=== PATIENT | female | born 1940 | race Caucasian/White ===

== ENCOUNTER 2016-05-13 11:45 | Inpatient (IN) | payer OTHER, MEDICARE ==
[~2016-05-13] VITALS: Ht 152.4 cm; Wt 86.2 kg
[~2016-05-13 11:45] MED LIST: ASPIRIN EC81 M1 PO; ATORVASTATIN CA40 MG PO; CLOPIDOGREL75 MG PO; ESCITALOPRAM10 MG PO; LEVOCETIRIZINE D5 MG PO; LEVOTHROID SOD0.1 MG PO; METOPROLOL SUCC50 M1 PO; MOMETASONE0.05 MG/Ac NASB; OMEPRAZOLE D/R20 MG PO; SINGULAIR10 MG PO; SYMBICORT 160/41 PUF INH; ZETIA10 MG PO
--- NOTE | 2016-05-13 12:07 | NUR ---
PT BIBA FROM HOME. PT STATES SHE SLID OFF THE COUCH LAST NIGHT AND WAS UNABLE TO GET BACK UP. PT STATES SHE SPENT THE NIGHT ON THE FLOOR UNTIL HER NEIGHBOR CHECKED ON HER TODAY. PT ARRIVES TO ED, A&O X 3, INCONTINENT OF STOOL AND URINE. GAYATRI CARE PROVIDED. PT HAS SKIN TEARS TO BILATERAL ELBOWS AND REDNESS TO B/L KNEES. PT DENIES LOC AND STATES THAT SHE TAKES PLAVIX FOR CARDIAC STENTS. PT STATES +DIZZY
[2016-05-13 12:37] LABS: ABSOLUTE BASOPHIL COUNT 0 /CUMM (0.0-0.2); ABSOLUTE EOSINOPHIL COUNT 0 /CUMM (0.0-0.7); ABSOLUTE GRANULOCYTE CT 13.6 /CUMM (1.4-6.5); ABSOLUTE LYMPH COUNT 0.9 /CUMM (1.2-3.4); ABSOLUTE MONOCYTE COUNT 0.8 /CUMM (0.10-0.60); BASOPHIL % 0.2 % (0.0-2.0); EOSINOPHIL % 0.1 % (0-5); HEMATOCRIT 44.8 % (37-47); MEAN CORPUSCULAR HGB 30.4 PG (27.0-31.0); MEAN CORPUSCULAR HGB CONC 33.8 G/DL (33.0-37.0); MEAN CORPUSCULAR VOLUME 89.9 FL (81.0-99.0); MEAN PLATELET VOLUME 8.4 FL (7.4-10.4); PLATELET COUNT 197 /CUMM (130-400); RBC DISTRIBUTION WIDTH 14.2 % (11.5-14.5); RED BLOOD CELL CT 4.98 /CUMM (4.20-5.40); WHITE BLOOD CELL COUNT 15.4 /CUMM (4.8-10.8)
[2016-05-13 12:42] LABS: PT 13.2 SEC (9.4-12.5)
[2016-05-13] MEDS ORDERED: BREO ELLIPTA 21 EACH (12:44)
[2016-05-13 13:00] LABS: GRANULOCYTE % 88.1 % (42.2-75.2)
--- NOTE | 2016-05-13 13:16 | ED MVC/FALL/TRAUMA COMPLAINT ---
History of Present Illness General Chief Complaint: Fall Stated Complaint: BIBA FALL, GEN WEAKNESS Source: patient, family, old records Exam Limitations: no limitations Vital Signs & Intake/Output Vital Signs & Intake/Output Vital Signs Date Time Temp Pulse Resp B/P Pulse O2 O2 Flow FiO2 Ox Delivery Rate 05/13 1542 98.5 78 81 125/59 98 Room Air 05/13 1203 97.9 74 20 142/65 96 Room Air Allergies Coded Allergies: NO KNOWN ALLERGIES (03/19/11) Reconcile Medications Aspirin (Ecotrin*) 81 MG TABLET.DR 1 TAB PO DAILY HEART HEALTH (Reported) Budesonide/Formoterol Fumara (Symbicort 160-4.5 Mcg Inhaler) 160 MCG/4.5 MCG PUF 2 PUF INH BID ASTHMA (Reported) CLOPIDOGREL BISULFATE (Clopidogrel) 75 MG TAB 1 TAB PO DAILY BLOOD THINNER ( Reported) Ergocalciferol (Vitamin D2) (Vitamin D2) 50,000 UNIT CAPSULE 1 CAP PO QW vitamin D deficiency Escitalopram Oxalate 10 MG TAB 1 TAB PO DAILY MENTAL HEALTH (Reported) Ezetimibe (Zetia) 10 MG TAB 1 TAB PO DAILY CHOLESTEROL (Reported) LEVOCETIRIZINE DIHYDROCHLORIDE (Levocetirizine Dihydrochloride) 5 MG TAB 1 TAB PO QPM ASTHMA (Reported) Levothyroxine Sodium (Levothroid Sodium) 0.1 MG TAB 1 TAB PO DAILY THYROID ( Reported) Metoprolol Succinate (Metoprolol Succinate XL) [address] 1 TAB PO DAILY HEART (Reported) Mometasone Furoate (Nasonex) 0.05 MG/Actuation SPR 2 SPRAY NASB DAILY NASAL CONGESTION (Reported) Montelukast Sodium (Singulair) 10 MG TAB 1 TAB PO QPM ASTHMA (Reported) Omeprazole 20 MG CAPSULE.DR 1 CAP PO DAILY GERD (Reported) Prednisone 20 MG TABLET 1 TAB PO DAILY asthma Triage Note: PT BIBA FROM HOME. PT STATES SHE SLID OFF THE COUCH LAST NIGHT AND WAS UNABLE TO GET BACK UP. PT STATES SHE SPENT THE NIGHT ON THE FLOOR UNTIL HER NEIGHBOR CHECKED ON HER TODAY. PT ARRIVES TO ED, A&O X 3, INCONTINENT OF STOOL AND URINE. GAYATRI CARE PROVIDED. PT HAS SKIN TEARS TO BILATERAL ELBOWS AND REDNESS TO B/L KNEES. PT DENIES LOC AND STATES THAT SHE TAKES PLAVIX FOR CARDIAC STENTS. Triage Nurses Notes Reviewed? yes HPI: Patient presents for evaluation of injury sustained status post fall off the couch yesterday. Patient states that she had taken a nap, had awoken and attempted to get up off the couch. She then fell onto the floor and was unable to arise due to pain and weakness. She has a known history of chronic back pain and chronic knee pains but apparently lay on the floor until this morning. She denies head trauma or loss of consciousness. According to the patient's daughter she wasn't feeling well Tuesday and Tuesday with a headache sore throat cough and vomiting. The symptoms appear to have resolved. Currently the pt has back and bilateral knee painsThe patient's pain is characterized as mild in intensity and worse with movement and palpation. It is described as a sharp and achy pain that is constant and improves with rest and holding still. Apparently she has been falling fairly frequently over the past 5 or so weeks. Past History Travel History Traveled to [place] past 21 day No Medical History Any Pertinent Medical History? 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 Left arthroscopic rotator cuff repair, Left knee arthroscopic repair Psychosocial History Who do you live with Family Services at Home None What is your primary language Maori Tobacco Use: Quit >30 days ago ETOH Use: denies use Illicit Drug Use: denies illicit drug use Family History Family History, If Any: MOTHER FH: diabetes mellitus FH: esophageal cancer FH: heart attack, Onset: 60+. FATHER FH: prostate cancer Hx Contributory? No Review of Systems Review of Systems Constitutional: Reports: no symptoms. Eyes: Reports: no symptoms. Ears, Nose, Throat, Mouth: Reports: no symptoms. Respiratory: Reports: no symptoms. Cardiovascular: Reports: no symptoms. Gastrointestinal/Abdominal: Reports: no symptoms. Genitourinary: Reports: no symptoms. Musculoskeletal: Reports: see HPI. Skin: Reports: no symptoms. Neurological/Psychological: Reports: no symptoms. All Other Systems: Reviewed and Negative Physical Exam Physical Exam General Appearance: SEE BELOW Comments: Gen.: Well-nourished, well-developed, no acute respiratory distress. Head: Normocephalic, atraumatic, nontender. Eyes: Normal inspection bilaterally, bryan, EOMI Ears: Normal inspection bilaterally Nose: Normal inspection Throat/mouth : Moist mucosa Neck: Supple, full range of motion, no goiter, nontender Heart: Regular rate and rhythm, no murmurs rubs or gallops Lungs: Clear to auscultation bilaterally with normal air entry Chest: Nontender Back: Normal range of motion, nontender Abdomen: Soft, nontender, nondistended, normal bowel sounds Pelvis: Stable, bilateral tenderness to palpation. Extremities: Normal range of motion grossly, no tenderness of the patella bilaterally with mild erythema and ecchymoses. Abrasions of both elbows with no tenderness with range of motion or palpation., Normal distal sensation color and pulses to all extremities. Neurologic: Cranial nerves grossly intact, speech is clear Skin: warm and dry and without ecchymoses or soft tissue swelling or erythema Psychiatric: Calm, cooperative, no apparent delusions or hallucinations Core Measures ACS in differential dx? No Severe Sepsis Present: No Septic Shock Present: No Progress Differential Diagnosis: HEAD TRAUMA, PELVIC TRAUMA, KNEE FRACTURES, aBNORMALITY/ RHABDOMYOLYSIS, DEHYDRATION Plan of Care: Orders Procedure Date/time Status Admit to inpatient 05/13 1652 Active Patient Data 05/13 1623 Active Add-on Test (ER Only) 05/13 1315 Active Add-on Test (ER Only) 05/13 1305 Active TROPONIN LEVEL 05/13 1226 Complete CREATINE PHOSPHOKINASE 05/13 1226 Complete PROTHROMBIN TIME 05/13 1213 Complete URINALYSIS 05/13 1212 Complete COMPREHENSIVE METABOLIC PANEL 05/13 1212 Complete CBC WITHOUT DIFFERENTIAL 05/13 1212 Complete EKG 05/13 1212 Active Laboratory Tests 05/13/16 1502: Urinalysis MOD H, Urine Color YEL, Urine Clarity HAZY H, Urine pH 6.0, Ur Specific [place] >= 1.030, Urine Protein 100 H, Urine Ketones 15 H, Urine Nitrite NEG, Urine Bilirubin NEG@ICTO, Urine Urobilinogen 0.2, Ur Leukocyte Esterase NEG, Ur Microscopic SEDIMENT EXAMINED, Urine RBC 1-3, Urine WBC 5-10 H , Ur Epithelial Cells FEW, Urine Mucus MOD H, Urine Hemoglobin LARGE H, Urine Glucose NEG 05/13/16 1226: Anion Gap 12, Estimated GFR 54 L, BUN/Creatinine Ratio 21.0, Glucose 115 H, Calcium 9.4, Total Bilirubin 1.5 H, AST 203 H, ALT 83 H, Alkaline Phosphatase 73, Creatine Kinase 9775.0 H, Troponin I 0.04, Total Protein 6.6, Albumin 4.0, Globulin 2.6, Albumin/Globulin Ratio 1.5, PT 13.2 H, INR 1.26 H, CBC w Diff NO MAN DIFF REQ, RBC 4.98, MCV 89.9, MCH 30.4, RDW 14.2, MPV 8.4, Gran % 88.1 H, Lymphocytes % 6.1 L, Monocytes % 5.5, Eosinophils % 0.1, Basophils % 0.2, Absolute Granulocytes 13.6 H, Absolute Lymphocytes 0.9 L, Absolute Monocytes 0.8 H, Absolute Eosinophils 0, Absolute Basophils 0, PUBS MCHC 33.8 Diagnostic Imaging: Discussed w/RAD: Radiology Read, CT Scan. Radiology Impression: PATIENT: MARTINA LEONARDO PRESENT AGE: 75 PATIENT ACCOUNT NO: [id number] : 38 LOCATION: [facility] ORDERING PHYSICIAN: ARLENE GLOVER MD SERVICE DATE: 05/13/16 EXAM TYPE: CAT - CT HEAD WO IV CONTRAST EXAMINATION: CT HEAD WITHOUT CONTRAST CLINICAL INFORMATION: Recent frequent falls. COMPARISON: CT of the head done on 2009. TECHNIQUE: Contiguous axial imaging was performed from the skull base to vertex without intravenous administration of contrast. DLP: 672.25 mGy-cm. FINDINGS: There is no evidence of acute intracranial hemorrhage or territorial infarction. No abnormal mass effect or midline shift is seen. Hwang to white matter differentiation is well preserved. No extra-axial fluid collections are identified. The ventricles are normal in size. Moderate age-appropriate diffuse cortical atrophy and moderate chronic microvascular deep white matter ischemic changes are present. No significant change. The osseous structures and soft tissues are normal. The mastoid air cells and visualized portions of the paranasal sinuses are well aerated. IMPRESSION: No acute intracranial pathology, without any significant change since 11/06/2009. DICTATED BY: NORI SALINAS MD DATE/TIME DICTATED:05/13/160 MANAGER SPECIALTY:TOM DATE/TIME TRANSCRIBED:05/13/161429 CONFIDENTIAL, DO NOT COPY WITHOUT APPROPRIATE AUTHORIZATION. <Electronically signed in Other Vendor System> SIGNED BY: NORI SALINAS MD 05/13/161438, PATIENT: MARTINA LEONARDO PRESENT AGE: 75 PATIENT ACCOUNT NO: [id number] : 38 LOCATION: [facility] ORDERING PHYSICIAN: ARLENE GLOVER MD SERVICE DATE: 05/13/16 EXAM TYPE: RAD - XRY-AP PELVIS; XRY-KNEE COMPLETE LEFT; XRY-KNEE COMPLETE RIGHT EXAMINATION : XR PELVIS XR KNEE, LEFT XR KNEE, RIGHT CLINICAL INFORMATION: 75-year-old female, status post fall, complaining of pain, tenderness in the pelvis, and both knees. COMPARISON: None TECHNIQUE: Single frontal view of the pelvis and 4 views each of both knees. FINDINGS: PELVIS: Mild diffuse osteopenia is noted. Mild osteoarthrosis of both hips is noted. The bony alignment is intact. The cortices are intact. No radiographic evidence of any displaced fracture present. Degenerative spondylosis-related changes are noted within the visualized lower lumbar spine. RIGHT KNEE: The bony alignment is intact. The cortices are intact. No significant arthritic changes are present. There is no effusion present. Vascular, arterial calcifications are present consistent with underlying atherosclerotic disease. LEFT KNEE: Mild asymmetric decreased joint space, subchondral sclerosis, mild osteophyte formation, consistent with mild-to- moderate osteoarthrosis is present at the medial compartment. The bony alignment is intact. The cortices are intact. There is no joint effusion present. Atherosclerotic disease is noted within the aorta. Note is also made of enthesopathy at the insertional site of the quadriceps tendon to the superior pole of the patella. Specifically no fracture or dislocation is seen. IMPRESSION : 1. No radiographic evidence of any acute fracture and/or dislocation is present within the pelvis, and both knees. 2. [id number] osteoarthrosis is noted at the medial compartment of the left knee. 3. Evidence of enthesopathy at the insertional site of the quadriceps tendon to the patella on the left. 4. 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 DICTATED BY: NORI SALINAS MD DATE/TIME DICTATED:05/13/161429 MANAGER SPECIALTY:RAD.LOVELACE DATE/TIME TRANSCRIBED:05/13/16 / 1430 CONFIDENTIAL, DO NOT COPY WITHOUT APPROPRIATE AUTHORIZATION. <Electronically signed in Other Vendor System> SIGNED BY: NORI SALINAS MD 05/13/16 1503 Initial ED EKG: NSR, rate (79), LAD Departure Departure Disposition: STILL A PATIENT Condition: Stable Clinical Impression Primary Impression: Rhabdomyolysis Qualifiers: Rhabdomyolysis type: traumatic Encounter type: initial encounter Qualified Code: T79.6XXA - Traumatic ischemia of muscle, initial encounter Secondary Impressions: Elbow abrasion Fall Knee contusion Qualifiers: Encounter type: initial encounter Laterality: unspecified laterality Qualified Code: S80.00XA - Contusion of unspecified knee, initial encounter Pyuria Referrals: JOSÉ LUIS BARLOW MD (PCP/Family) Departure Forms: Customer Survey General Discharge Information Prescriptions: Current Visit Scripts Ergocalciferol (Vitamin D2) (Vitamin D2) 1 CAP PO QW #8 CAP Prednisone 1 TAB PO DAILY #6 TAB Admission Note Spoke With: JOSÉ LUIS BARLOW MD Documentation of Exam: Documentation of any treatments & extenuating circumstances including Concerns Regarding Discharge (functional status, medication knowledge or non-compliance, living conditions, etc.) that warrant an admission rather than observation: Patient fell last night and was unable to get up off the floor. She is currently suffering rhabdomyolysis with a high risk of renal failure. Given her advanced age and medical comorbidities I do not feel the patient can be treated safely as an outpatient. I feel she would have great difficulty in complying with outpatient treatment plan. In addition she requires IV fluids to maintain renal perfusion and close monitoring of her CK levels. Given the bilateral knee contusions and the recent falling, I feel she should also have physical therapy consultation to assess for gait stability and the need for assistive devices. In addition the patient also might require short-term rehabilitation. I feel she will require a multiple day hospitalization. Critical Care Note Critical Care Note Critical Care Time: 30-74 min
--- NOTE | 2016-05-13 13:26 | NUR ---
EKG COMPLETED AND SHOWN TO DR GLOVER.
--- NOTE | 2016-05-13 13:34 | NUR ---
PT TO CT SCAN
--- NOTE | 2016-05-13 14:09 | NUR ---
PT RETURNS FROM CT SCAN AND XRAY
--- NOTE | 2016-05-13 14:39 | CT SCAN REPORT ---
EXAMINATION: CT HEAD WITHOUT CONTRAST CLINICAL INFORMATION: Recent frequent falls. COMPARISON: CT of the head done on 11/06/2009. TECHNIQUE: Contiguous axial imaging was performed from the skull base to vertex without intravenous administration of contrast. DLP: 672.25 mGy-cm. FINDINGS: There is no evidence of acute intracranial hemorrhage or territorial infarction. No abnormal mass effect or midline shift is seen. Hwang to white matter differentiation is well preserved. No extra-axial fluid collections are identified. The ventricles are normal in size. Moderate age-appropriate diffuse cortical atrophy and moderate chronic microvascular deep white matter ischemic changes are present. No significant change. The osseous structures and soft tissues are normal. The mastoid air cells and visualized portions of the paranasal sinuses are well aerated. IMPRESSION: No acute intracranial pathology, without any significant change since 11/06/2009.
--- NOTE | 2016-05-13 15:03 | RADIOLOGY REPORT ---
EXAMINATION: XR PELVIS XR KNEE, LEFT XR KNEE, RIGHT CLINICAL INFORMATION: 75-year-old female, status post fall, complaining of pain, tenderness in the pelvis, and both knees. COMPARISON: None TECHNIQUE: Single frontal view of the pelvis and 4 views each of both knees. FINDINGS: PELVIS: Mild diffuse osteopenia is noted. Mild osteoarthrosis of both hips is noted. The bony alignment is intact. The cortices are intact. No radiographic evidence of any displaced fracture present. Degenerative spondylosis-related changes are noted within the visualized lower lumbar spine. RIGHT KNEE: The bony alignment is intact. The cortices are intact. No significant arthritic changes are present. There is no effusion present. Vascular, arterial calcifications are present consistent with underlying atherosclerotic disease. LEFT KNEE: Mild asymmetric decreased joint space, subchondral sclerosis, mild osteophyte formation, consistent with [id number] osteoarthrosis is present at the medial compartment. The bony alignment is intact. The cortices are intact. There is no joint effusion present. Atherosclerotic disease is noted within the aorta. Note is also made of enthesopathy at the insertional site of the quadriceps tendon to the superior pole of the patella. Specifically no fracture or dislocation is seen. IMPRESSION: 1. No radiographic evidence of any acute fracture and/or dislocation is present within the pelvis, and both knees. 2. Isog-fa-boesxcle osteoarthrosis is noted at the medial compartment of the left knee. 3. Evidence of enthesopathy at the insertional site of the quadriceps tendon to the patella on the left. 4. 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
--- NOTE | 2016-05-13 15:05 | NUR ---
PT STRAIGHT CATHED FOR URINE. SPECIMEN SENT TO LAB
--- NOTE | 2016-05-13 15:21 | NUR ---
ASSUMED CARE OF PT AT THIS TIME. NORMAL SALINE INFUSING AT 150ML/HR PER ORDER AT THIS TIME. PT DENIES PAIN, ASKING FOR WATER. PER MD ITS OK FOR PT TO HAVE WATER AT THIS TIME. WATER PROVIDED AND PT OFFERS NO COMPLAINTS. FAMILY AT BEDSIDE AT THIS TIME. WILL CTM
--- NOTE | 2016-05-13 16:15 | NUR ---
HOUSE STAFF AT BEDSIDE FOR EVAL
--- NOTE | 2016-05-13 16:49 | NUR ---
PTS ELBOWS BILATERALLY CLEANED AND WRAPPED WITH GUAZE. PT NOTED WITH ABRASIONS ON BOTH ELBOWS. PT DENIES COMPLAINTS AT THIS TIME. AWARE WAITING ON BED ASSIGNMENT AT THIS TIME. WILL CTM
--- NOTE | 2016-05-13 17:07 | NUR ---
PTS DAUGHTER CONCERENED ABOUT PT WHEN SHE WILL EVENTUALLY BE DISCHARGED HOME. PTS DAUGHTER REQUESTING POSSIBLE HOME SERVICES FOR PT, CAPRI FROM CASE MANAGEMENT IN TO SPEAK WITH PATIENT AND FAMILY AT THIS TIME.
--- NOTE | 2016-05-13 17:15 | NUR ---
Case Mgmnt TSF: I went in and introduced myself to patient and family. I gave them our brochure and card and explained my role. Patient's daughter has concerns for when patient goes home as she has had multiple falls. Patient does have a [employer] but was not wearing at the time of the fall. We went over a couple of possible scenarios: ? STR vs ? home PT if needed. I let them know that CM would be following and would have frequent communication with the patient and family. CM continuing to follow.
[2016-05-13] MEDS ORDERED: OMEPRAZOLE20 M2 PO (17:37)
--- NOTE | 2016-05-13 17:37 | History & Physical ---
See Addendum VANNESSA OROURKE 05/13/16 9507: General Information and HPI MD Statement: I have seen and personally examined MARTINA FRANCIS and documented this H&P. The patient is a 75 year old F who presented with a patient stated chief complaint of 1. mechanical fall. Source of Information: patient, family, old records History of Present Illness: Ms Francis is a 75 yr old man who was known to be in her usual state of health until 6-8 wks ago. She has a PMH of HLD, CAD s/p drug eluting stents(2006,2007), hypothyroidism. She is being evaluated for a mechanical fall x 1 d ago. As per the pt's daughter, who was the chief historian, the pt began to have several falls x 5 times in the last 6 wks. Most of them were mechanical in nature w/ no prodromal symptoms or loss of consciousness. Reported chills, sorethorat, fever(did not record temperature) 2 days ago. Decrease PO intake. Also reported diarrhea x 3-4 times, vomiting x 1. She was found to have fallen down on the ground x 1 day ago, where she could not get up to the couch. Stated that she was lying on the ground for over 24 hrs, and finally contacted the relatives to alert them. Reports no loss of consioussness, no seizures( although no witnesses), no loss of bladder or bowel function. No chest pain, or palpitations. No urinary complaints. Sees Dr. Combs(pants maker). Allergies/Medications Allergies: Coded Allergies: NO KNOWN ALLERGIES (03/19/11) Home Med list Aspirin (Ecotrin*) 81 MG TABLET.DR 1 TAB PO DAILY HEART HEALTH (Reported) Atorvastatin Calcium (Lipitor) 40 MG TAB 1 TAB PO DAILY CHOLESTEROL (Reported ) Budesonide/Formoterol Fumara (Symbicort 160-4.5 Mcg Inhaler) 160 MCG/4.5 MCG PUF 2 PUF INH BID ASTHMA (Reported) CLOPIDOGREL BISULFATE (Clopidogrel) 75 MG TAB 1 TAB PO DAILY BLOOD THINNER ( Reported) Escitalopram Oxalate 10 MG TAB 1 TAB PO DAILY MENTAL HEALTH (Reported) Ezetimibe (Zetia) 10 MG TAB 1 TAB PO DAILY CHOLESTEROL (Reported) Fluticasone/Vilanterol (Breo Ellipta 200-25 Mcg INH) 200 MCG-25 MCG/DOSE BLST.W.DEV BREATHING PROBLEMS (Reported) LEVOCETIRIZINE DIHYDROCHLORIDE (Levocetirizine Dihydrochloride) 5 MG TAB 1 TAB PO QPM ASTHMA (Reported) Levothyroxine Sodium (Levothroid Sodium) 0.1 MG TAB 1 TAB PO DAILY THYROID ( Reported) Metoprolol Succinate (Metoprolol Succinate XL) [address] 1 TAB PO DAILY HEART (Reported) Mometasone Furoate (Nasonex) 0.05 MG/Actuation SPR 2 SPRAY NASB DAILY NASAL CONGESTION (Reported) Montelukast Sodium (Singulair) 10 MG TAB 1 TAB PO QPM ASTHMA (Reported) Omeprazole 20 MG CAPSULE.DR 1 CAP PO DAILY GERD (Reported) Compliance With Home Meds: GOOD Past History Travel History Traveled to [place] past 21 day No Medical History Neurological: NONE EENT: NONE Cardiovascular: hyperlipidemia, myocardial infarction, STENTS X3 Respiratory: asthma Gastrointestinal: GERD Hepatic: NONE Renal: NONE Musculoskeletal: LUMBAR SALAMANCA Psychiatric: NONE Endocrine: hypothyroidism Blood Disorders: NONE Cancer(s): NONE 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 Left arthroscopic rotator cuff repair, Left knee arthroscopic repair Past Family/Social History Family History Relations & Conditions if any MOTHER FH: diabetes mellitus FH: esophageal cancer FH: heart attack, Onset: 60+. FATHER FH: prostate cancer Psychosocial History Who Do You Live With? self Services at Home: None Primary Language: Luxembourgish ETOH Use: denies use Illicit Drug Use: denies illicit drug use Functional Ability ADLs Independent: dressing, eating, toileting, bathing. Ambulation: cane Review of Systems Review of Systems Constitutional: Reports: see HPI, fever, malaise, weakness. EENTM: Denies: blurred vision. Cardiovascular: Denies: edema. Respiratory: Denies: cough, hemoptysis. GI: Reports: nausea, changes in stool. Genitourinary: Denies: dysuria. Musculoskeletal: Denies: back pain, joint pain. Skin: Denies: change in skin color. Neurological/Psychological: Denies: headache, numbness. Hematologic/Endocrine: Denies: bruising. Exam & Diagnostic Data Last 24 Hrs of Vital Signs/I&O Vital Signs Date Time Temp Pulse Resp B/P Pulse O2 O2 Flow FiO2 Ox Delivery Rate 05/13 1939 98.1 92 18 118/60 96 Room Air 05/13 1542 98.5 78 81 125/59 98 Room Air 05/13 1203 97.9 74 20 142/65 96 Room Air Intake & Output 05/13 1600 05/13 0800 05/13 0000 Intake Total Output Total Balance Patient 190 lb Weight Physical Exam General Appearance Alert, Oriented X3, Cooperative, No Acute Distress Skin No Rashes, No Breakdown, bruises b/l on knees, bruises and ulcer on the right elbow. HEENT Atraumatic, PERRLA, EOMI Neck Supple, No JVD, No thryomegaly, +2 Carotid Pulse wo Bruit Lymphatic Cervical nl Cardiovascular Regular Rate, Normal S1, Normal S2, No Murmurs Lungs Normal Air Movement Abdomen Normal Bowel Sounds, Soft, abdominal tenderness on the left lower quadrant, pelvic tenderness Neurological Normal Speech, Strength at 5/5 X4 Ext, Normal Tone, Sensation Intact, Cranial Nerves 3-12 NL, Reflexes 2+ Extremities No Clubbing, No Cyanosis, No Edema, Normal Pulses Vascular Pulses Symmetrical Diagnostic Data EKG Results NSR HR 79 QTc 441, No STTWI Other Results CT head: -no acute pathology Knee x Ray -mild and moderate osteoarthrosis Assessment/Plan Assessment: She is an older lady w/ a PMH of hypothyroidism, CAD is being evaluated for a mechanical fall likely causing multiple injuries and elevated CK. At the time of admissison- vitals Temp 97.9, [place] 74, RR 20, BP 142/65, Pulse ox 96 on RA. Lab findings indicated- Leucocytosis WBC 15.4 (likely reactive ), Hb 15.1, platelets 197, Normal electrolytes- Na 135, K 4.2, HCO3 25, BUN 21, Sr Cr 1.0, T bili 1.5, AST 203, Alt 83, CK 9775. Radiological findings did not indicate any acute fractures. Last echo LVEF >55%. Admission diagnosis: 1. Deconditioning 2. Rhabdomyolysis Below is the problem list and plan: 1. Rhabdomyolysis sec to fall- likely deconditoning. Check B12, TSH. Contninue aggressive hydration w/ a close watch on pulmonary status for the next 24 hrs. Check renal function in the am. 2. Abnormal UA- has epithelial cell contamination. Recheck UA. Pt has no symptoms. Elevated Hb lkely from myoglobin. Check urine culture. 3. Abnormal transaminases- Elevated AST, ALT w/ normal Alkaline phosphatase. These enzymes are likely from muscle damage, and not liver involvement. 3. Deconditioning- PT evaluation. Fall precautions. 4. DVT prophylaxis- lovenox. As Ranked By This Provider Problem List: 1. Pyuria 2. Knee contusion Qualifiers Encounter type: initial encounter Laterality: unspecified laterality Qualified Code: S80.00XA - Contusion of unspecified knee, initial encounter Core Measures/Miscellaneous Acute Coronary Syndrome ACS Diagnosis: No Cerebrovascular Accident CVA/TIA Diagnosis: No Congestive Heart Failure CHF Diagnosis: No Venous Thromboembolism VTE Risk Factors: Acute medical illness, Age > 40 VTE Prophylaxis Ordered Inpt: Pharm- Lovenox No Mech VTE prophylaxis d/t: No contraindications No VTE Pharm Prophylaxis d/t: No contraindications VTE Diagnosis: No VTE Type: NONE VTE Confirmed by (Test): NONE Severe Sepsis Severe Sepsis Present: No Septic Shock Septic Shock Present: No Miscellaneous Documentation Attending Case Discussed With: JOSÉ LUIS BARLOW MD Primary Care Physician: JOSÉ LUIS BARLOW MD Patient sees these Specialists Dr. Gardner Level of Patient Care: General Medicine SCOOBY SCHULTZ 05/13/16 1750: Resident Review Statement Resident Statement: discussed with international exchange coordinator Other Findings: This is a very pleasant 74-year-old female with a past medical history of hypertension, hyperlipidemia, carotid artery disease, and coronary artery disease with multiple drug-eluting stents to left anterior descending artery in 2006 and at 2007 with subsequent negative nuclear stress test in 2011, asthma and hypothyroidism. She was BIBA from home. She states that she was trying to get up from the couch, fell down and was unable to get back up. She was on floor for whole day and night. She tried to crawl but could not move. She was incontinent of stool and urine. She denies any dizziness or lightheadedness, chest pain or discomfort, palpitations, loss of consciousness, seizure-like activity. She reports having upper respiratory symptoms, nausea, vomiting and watery nonbloody diarrhea are day before this event. Vomiting and diarrhea has resolved home. Denies any fever or chills, abdominal pain, sick contacts, recent antibiotic exposure, recent travel. She lives alone. Admits falling multiple times in past. Vitals on admission: Temperature 97.9, pulse 74, respiratory rate 20, blood pressure 142/65 and oxygen saturation 96% on room air. Positive physical exam findings: Abrasions of both elbows and lower extremities. Mild tenderness on palpation of lower abdomen and flank areas. Pertinent labs: WBC count 15.4, sodium 135, BUN 21, total bilirubin 1.5, AST 203 , ALT 83, CK 9775, INR 1.26. Urine is moderately hazy with large urine hemoglobin and urine WBCs 5-10. EKG: Normal sinus rhythm with no acute ST-T wave changes. Head CT: No acute intracranial pathology Pelvic and bilateral knee x-ray: No evidence of fracture or dislocation. Osteoarthritis. Atherosclerotic disease involving femoropopliteal arteries bilaterally. Evidence of enthesopathy at the insertional site of the quadriceps tendon to the patella on the left. Assessment This is a very pleasant 74-year-old female with a past medical history of hypertension, hyperlipidemia, carotid artery disease, and coronary artery disease with multiple drug-eluting stents to left anterior descending artery in 2006 and at 2007 with subsequent negative nuclear stress test in 2011, asthma and hypothyroidism. She is going to be admitted on general medicine floor for: Problem list 1. Rhabdomyolysis. CK 9775. Probably being on floor for a long time. Kidney functions are normal. Potassium and calcium levels are normal. Phosphorous and uric acid pending. 2. Leukocytosis. Most likely reactive. No signs of infection 3. Hyponatremia. Sodium 135. Most likely due to dehydration 4. Elevated bilirubin and transaminitis with coagulopathy. Could be nonalcoholic fatty liver disease or side effect of Lipitor. Plan - Monitor vitals every shift - Continue IV fluids. Trending CK level. - Close monitoring of electrolytes and kidney function - Repeat LFTs and coags in a.m. Right upper quadrant ultrasound to see any liver or biliary pathology. Will discontinue Lipitor for now. - We will continue on her home medications except Lipitor - Subcutaneous Lovenox for DVT prophylaxis - Heart healthy diet - Physical therapy evaluation and treatment - Tylenol as needed for pain management - Full code
--- NOTE | 2016-05-13 17:41 | NUR ---
HEART HEALTHY TRAY ORDERED FOR PT AT THIS TIME
--- NOTE | 2016-05-13 18:06 | NUR ---
PT ASSIGNED TO 209-1
--- NOTE | 2016-05-13 18:06 | NUR ---
PT SITTING UP EATING DINNER TRAY AT THIS TIME.
--- NOTE | 2016-05-13 18:20 | NUR ---
PT TO US AT THIS TIME VIA STRETCHER
--- NOTE | 2016-05-13 18:26 | NUR ---
REPORT GIVEN TO RADHA ON [facility]. WILL CALL DIST[facility]BUTION WHEN PT IS BACK FROM [facility]AS[facility].
--- NOTE | 2016-05-13 18:55 | NUR ---
PT BACK FROM US [facility] CALLED FOR PT TRANSPORT AT THIS TIME.
--- NOTE | 2016-05-13 19:30 | Admission Certification ---
Admission Certification Certification Statement - As attending physician, I certify that at the time of - admission, based on clinical presentation, severity of - symptoms, need for further diagnostic testing and - therapeutic interventions, and risk of adverse outcomes - without in-hospital treatment, in my clinical assessment, - this patient requires an acute hospital stay for a minimum - of two nights or longer. I have also considered psychsocial - factors such as support system, advanced age, financial - issues, cognitive issues, and failed out-patient treatments, - past re-admission history, safety of patient, and lack of - compliance as applicable. Specific rationale supporting this admission is: FRQUENT FALLS LAST FALL LAST EVENING ELEVATED ck RHABDO. NEW ELEVATED LFTS
[2016-05-13 19:39] VITALS: BP 118/60
--- NOTE | 2016-05-13 19:40 | PN- Att Addend ---
Attending Addendum Attending Brief Note 75 YEAR OLD WHITE FEMALE STATES HAD A COUPLE OF FALLS LAST WEEK OUTSIDE LAST EVENING SLID OFF THE COUCH AND COULD NOT GET UP WAS DOWN ALL NIGJHT IN THE MORNING NEIGHBOUR CAME TO CHECK HER FOND HER DOWN AND SENT HER TO THE ER WAS ALERT AND ORIENTED X 3 CARDIAC WORK UP OK SOME ABRASIONS BOTH ELBOWS WAS INCONTINENT OF URINE AND STOOLS ELEVATED CK AND LFTS,.WILL ADMIT MONITOR LABS LIVER US PT EVAL IN AM. Laboratory Tests 05/13 05/13 1502 1226 Chemistry Sodium (137 - 145 mmol/L) 135 L Potassium (3.5 - 5.1 mmol/L) 4.2 Chloride (98 - 107 mmol/L) 97 L Carbon Dioxide (22 - 30 mmol/L) 25 Anion Gap (5 - 16) 12 BUN (7 - 17 mg/dL) 21 H Creatinine (0.5 - 1.0 mg/dL) 1.0 Estimated GFR (>60 ml/min) 54 L BUN/Creatinine Ratio (7 - 25 %) 21.0 Glucose (65 - 99 mg/dL) 115 H Uric Acid (2.5 - 6.2 mg/dL) 6.8 H Calcium (8.4 - 10.2 mg/dL) 9.4 Phosphorus (2.5 - 4.5 mg/dL) 4.1 Total Bilirubin (0.2 - 1.3 mg/dL) 1.5 H AST (14 - 36 U/L) 203 H ALT (9 - 52 U/L) 83 H Alkaline Phosphatase (<127 U/L) 73 Creatine Kinase (30 - 135 U/L) 9775.0 H Troponin I (< 0.11 ng/ml) 0.04 Total Protein (6.3 - 8.2 g/dL) 6.6 Albumin (3.5 - 5.0 g/dL) 4.0 Globulin (1.9 - 4.2 gm/dL) 2.6 Albumin/Globulin Ratio (1.1 - 2.2 %) 1.5 Coagulation PT (9.4 - 12.5 SEC) 13.2 H INR (0.90 - 1.19) 1.26 H Hematology CBC w Diff NO MAN DIFF REQ WBC (4.8 - 10.8 /CUMM) 15.4 H RBC (4.20 - 5.40 /CUMM) 4.98 Hgb (12.0 - 16.0 G/DL) 15.1 Hct (37 - 47 %) 44.8 MCV (81.0 - 99.0 FL) 89.9 MCH (27.0 - 31.0 PG) 30.4 RDW (11.5 - 14.5 %) 14.2 Plt Count (130 - 400 /CUMM) 197 MPV (7.4 - 10.4 FL) 8.4 Gran % (42.2 - 75.2 %) 88.1 H Lymphocytes % (20.5 - 51.1 %) 6.1 L Monocytes % (1.7 - 9.3 %) 5.5 Eosinophils % (0 - 5 %) 0.1 Basophils % (0.0 - 2.0 %) 0.2 Absolute Granulocytes (1.4 - 6.5 /CUMM) 13.6 H Absolute Lymphocytes (1.2 - 3.4 /CUMM) 0.9 L Absolute Monocytes (0.10 - 0.60 /CUMM) 0.8 H Absolute Eosinophils (0.0 - 0.7 /CUMM) 0 Absolute Basophils (0.0 - 0.2 /CUMM) 0 PUBS MCHC (33.0 - 37.0 G/DL) 33.8 Urines Urinalysis MOD H Urine Color (YEL,AMB,STR) YEL Urine Clarity (CLEAR) HAZY H Urine pH (5.0 - 8.0) 6.0 Ur Specific [place] (1.001 - 1.035) >= 1.030 Urine Protein (NEG,<30 MG/DL) 100 H Urine Ketones (NEG) 15 H Urine Nitrite (NEG) NEG Urine Bilirubin (NEG) NEG@ICTO Urine Urobilinogen (0.1 - 1.0 EU/dl) 0.2 Ur Leukocyte Esterase (NEG) NEG Ur Microscopic SEDIMENT EXAMINED Urine RBC (0 - 5 /HPF) 1-3 Urine WBC (0 - 2 /HPF) 5-10 H Ur Epithelial Cells (NONE,FEW) FEW Urine Mucus (FEW,NONE) MOD H Urine Hemoglobin (NEG) LARGE H Urine Glucose (N MG/DL) NEG X RAY OF BOTH KNEES AND PELVIS NO FRACTURES CT OF THE HEAD NO BLEEDING.
--- NOTE | 2016-05-13 22:57 | NUR ---
LATE ENTRY: PATIENT ARRIVED TO FLOOR AT 1910 FROM ER, DX RHABDO VS 98.1 92 18 118/60 96% ROOM AIR A&O, HARD OF HEARING, LCTA, INDEPENDENT WITH CANE OR RW AT BASELINE. REQUESTED BEDPAN FOR VOIDING; WAS S/C IN ER FOR URINE SAMPLE ABRASIONS TO BOTH ELBOWS-BACITRACIN & DSG APPLIED, SKIN MAN COMPLETED, KONRAD KNEES RED, BRUISE TO R OUTER ABD #20 IV TO RAC WITH NS @ 100 ML/HR RUNNING ORIENTED TO ROOM AND CALL GLOVER, CONTINUE TO MONITOR.
--- NOTE | 2016-05-13 23:04 | ULTRASOUND REPORT ---
EXAMINATION: US ABDOMEN LIMITED CLINICAL INFORMATION: Elevated liver enzymes, mid abdominal pain. COMPARISON: None TECHNIQUE: Real-time imaging of the right upper quadrant abdominal viscera. Study is reportedly limited due to the patient's body habitus. FINDINGS: PANCREAS: Visualization of the majority of the pancreas is obscured by bowel gas. LIVER: Limited evaluation. No obvious liver lesions. No biliary ductal dilatation is demonstrated. GALLBLADDER: Normal. The gallbladder is physiologically distended without evidence of stones, sludge, polyps, wall thickening or pericholecystic fluid. COMMON BILE DUCT: Normal in caliber measuring 0.3 cm in diameter. RIGHT KIDNEY: No hydronephrosis. Several renal cysts, the largest in the lower pole measuring 8.8 cm. The kidney measures 9.7 cm in maximum dimension. FREE FLUID: None. IMPRESSION: Limited study with poor visualization of the liver and pancreas. If further imaging evaluation of the liver is desired, a CT with contrast or MRI would be recommended. Right renal cysts.
[2016-05-14 00:02] VITALS: BP 118/60
--- NOTE | 2016-05-14 05:56 | PN- Housestaff ---
Subjective Follow-up For: mechanical fall Subjective: Pt seemed improved. She was comfortable. She did not have any complaints. No chest pain, palpitations. No urinary complaints. Vitals were stable overngiht. BP was stable. During the day, physical therapy worked w/ Ms Francis who suggested STR placement. Discussed in detail with Ms Farncis, about the benefits of STR. Daugther at bedside. Review of Systems Constitutional: Reports: see HPI. Objective Last 24 Hrs of Vital Signs/I&O Vital Signs Date Time Temp Pulse Resp B/P Pulse O2 O2 Flow FiO2 Ox Delivery Rate 05/14 0002 98.3 98 18 118/60 98 Room Air 05/13 1939 98.1 92 18 118/60 96 Room Air 05/13 1542 98.5 78 81 125/59 98 Room Air 05/13 1203 97.9 74 20 142/65 96 Room Air Intake & Output 05/14 0800 05/14 0000 05/13 1600 Intake Total 760 Output Total Balance 760 Intake, IV 400 Intake, Oral 360 Patient 190 lb 190 lb Weight Physical Exam General Appearance: No Acute Distress Other Physical Findings: General Appearance Alert, Oriented X3, Cooperative, No Acute Distress Skin No Rashes, No Breakdown, bruises b/l on knees, bruises and ulcer on the right elbow. HEENT Atraumatic, PERRLA, EOMI Neck Supple, No JVD, No thryomegaly, +2 Carotid Pulse wo Bruit Lymphatic Cervical nl Cardiovascular Regular Rate, Normal S1, Normal S2, No Murmurs Lungs Normal Air Movement Abdomen Normal Bowel Sounds, Soft, abdominal tenderness on the left lower quadrant, pelvic tenderness Neurological Normal Speech, Strength at 5/5 X4 Ext, Normal Tone, Sensation Intact, Cranial Nerves 3-12 NL, Reflexes 2+ Extremities No Clubbing, No Cyanosis, No Edema, Normal Pulses Vascular Pulses Symmetrical Current Medications: Current Medications Sig/[place]o Start time Last Medication Dose Route Stop Time Status Admin Acetaminophen 650 MG Q8P PRN 05/13 1830 AC PO Aspirin Buffered 81 MG DAILY 05/14 1000 AC PO Atorvastatin Calcium 40 MG DAILY 05/14 1000 CAN PO Budesonide/ 2 PUF BID 05/130 AC 05/13 Formoterol Fumarate INH 2207 Clopidogrel Bisulfate 75 MG DAILY 05/14 1000 AC PO Enoxaparin Sodium 40 MG DAILY 05/14 1000 AC SC Escitalopram Oxalate 10 MG DAILY 05/14 1000 AC PO Ezetimibe 10 MG DAILY 05/14 1000 AC PO Fluticasone 2 PUF BID PRN 05/13 1745 AC Propionate INH Levothyroxine Sodium 0.1 MG DAILY AC 05/14 0700 AC PO Metoprolol Succinate 50 MG DAILY 05/14 1000 AC PO Montelukast Sodium 10 MG QPM 05/13 2200 AC 05/13 PO 2207 Non-Formulary 0 SEE ADMIN CRITERIA 05/13 1745 CAN Medication ANY Omeprazole 20 MG DAILY 05/14 1000 AC PO Sodium Chloride 2 SPRAY DAILY 05/14 1000 AC TEZ Sodium Chloride 1,000 ML .Q10H 05/13 1730 AC 05/13 IV 05/14 1329 2351 Sodium Chloride 1,000 ML ONCE ONE 05/13 1500 DC 05/13 IV 05/13 2139 1521 Sodium Chloride 1,000 ML BOLUS ONE 05/13 1345 DC 05/13 IV 05/13 1444 1337 Last 24 Hrs of Lab/Ronald Results Last 24 Hrs of Labs/Mics: Laboratory Tests 05/13/16 1502: Urinalysis MOD H, Urine Color YEL, Urine Clarity HAZY H, Urine pH 6.0, Ur Specific [place] >= 1.030, Urine Protein 100 H, Urine Ketones 15 H, Urine Nitrite NEG, Urine Bilirubin NEG@ICTO, Urine Urobilinogen 0.2, Ur Leukocyte Esterase NEG, Ur Microscopic SEDIMENT EXAMINED, Urine RBC 1-3, Urine WBC 5-10 H , Ur Epithelial Cells FEW, Urine Mucus MOD H, Urine Hemoglobin LARGE H, Urine Glucose NEG 05/13/16 1226: Anion Gap 12, Estimated GFR 54 L, BUN/Creatinine Ratio 21.0, Glucose 115 H, Uric Acid 6.8 H, Calcium 9.4, Phosphorus 4.1, Total Bilirubin 1.5 H, AST 203 H, ALT 83 H, Alkaline Phosphatase 73, Creatine Kinase 9775.0 H, Troponin I 0.04, Total Protein 6.6, Albumin 4.0, Globulin 2.6, Albumin/Globulin Ratio 1.5, PT 13.2 H, INR 1.26 H, CBC w Diff NO MAN DIFF REQ, RBC 4.98, MCV 89.9, MCH 30.4, RDW 14.2, MPV 8.4, Gran % 88.1 H, Lymphocytes % 6.1 L, Monocytes % 5.5, Eosinophils % 0.1, Basophils % 0.2, Absolute Granulocytes 13.6 H, Absolute Lymphocytes 0.9 L, Absolute Monocytes 0.8 H, Absolute Eosinophils 0, Absolute Basophils 0, PUBS MCHC 33.8 Assessment/Plan Assessment: She is an older lady w/ a PMH of hypothyroidism, CAD is being evaluated for a mechanical fall likely causing multiple injuries and elevated CK. At the time of admissison- vitals Temp 97.9, [place] 74, RR 20, BP 142/65, Pulse ox 96 on RA. Lab findings indicated- Leucocytosis WBC 15.4 (likely reactive ), Hb 15.1, platelets 197, Normal electrolytes- Na 135, K 4.2, HCO3 25, BUN 21, Sr Cr 1.0, T bili 1.5, AST 203, Alt 83, CK 9775. Radiological findings did not indicate any acute fractures. Last echo LVEF >55%. Admission diagnosis: 1. Deconditioning 2. Rhabdomyolysis Below is the problem list and plan: 1. Rhabdomyolysis sec to fall- likely deconditoning. Serum B12, TSH, vitamin D- pending Contninue aggressive hydration w/ a close watch on pulmonary status for the next 24 hrs. Sr Cr stable. CK improved after hydration for the last 24 hrs 9775-->4674. Leucocytosis improved 15.4-->9.9(likely reactive). 2. Abnormal UA- has epithelial cell contamination. Recheck UA. Pt has no symptoms. Elevated Hb lkely from myoglobin. No abx 3. Abnormal transaminases- Improved in the last 24 hrs. AST, ALT w/ normal Alkaline phosphatase are likely from the muscle and not from the liver. AST 203- ->176. No further liver function tests needed at this time. 3. Deconditioning- PT evaluation recommeded STR. Fall precautions. 4. DVT prophylaxis- lovenox. Problem List: 1. Pyuria 2. Elbow abrasion 3. Knee contusion 4. Rhabdomyolysis Pain Ratin Pain Location: left elbow Pain Goal: Pain 4 or less Pain Plan: tylenol prn Tomorrow's Labs & Rationales: ck
[2016-05-14 08:05] LABS: ABSOLUTE BASOPHIL COUNT 0 /CUMM (0.0-0.2); ABSOLUTE EOSINOPHIL COUNT 0.1 /CUMM (0.0-0.7); ABSOLUTE GRANULOCYTE CT 7.8 /CUMM (1.4-6.5); ABSOLUTE LYMPH COUNT 1.3 /CUMM (1.2-3.4); BASOPHIL % 0.1 % (0.0-2.0); EOSINOPHIL % 0.7 % (0-5); MEAN CORPUSCULAR VOLUME 89.6 FL (81.0-99.0); RBC DISTRIBUTION WIDTH 14.4 % (11.5-14.5)
[2016-05-14 08:19] VITALS: BP 127/67
[2016-05-14 08:21] LABS: PT 12.1 SEC (9.4-12.5)
[2016-05-14 08:26] LABS: ABSOLUTE MONOCYTE COUNT 0.8 /CUMM (0.10-0.60); GRANULOCYTE % 78.2 % (42.2-75.2); MEAN CORPUSCULAR HGB 30.1 PG (27.0-31.0); MEAN CORPUSCULAR HGB CONC 33.6 G/DL (33.0-37.0); MEAN PLATELET VOLUME 8.9 FL (7.4-10.4); PLATELET COUNT 182 /CUMM (130-400); RED BLOOD CELL CT 4.41 /CUMM (4.20-5.40); WHITE BLOOD CELL COUNT 9.9 /CUMM (4.8-10.8)
[2016-05-14 08:34] LABS: HEMATOCRIT 39.5 % (37-47)
--- NOTE | 2016-05-14 11:00 | PN- Att Addend ---
Attending Addendum Attending Brief Note Patient complaining of cold symptoms now. Her vital signs are stable. Her mentation is at baseline. Her liver function tests and CK are slowly decreasing. Will check abdominal ultrasound to check the liver continue observation today get a physical therapy evaluation Current Medications Sig/Eliceo Start time Last Medication Dose Route Stop Time Status Admin Acetaminophen 650 MG Q8P PRN 05/13 1830 AC PO Aspirin Buffered 81 MG 2200 05/14 2200 AC PO Aspirin Buffered 81 MG DAILY 05/14 1000 DC PO Atorvastatin Calcium 40 MG DAILY 05/14 1000 CAN PO Budesonide/ 2 PUF BID 05/13 2200 AC 05/14 Formoterol Fumarate INH 0909 Clopidogrel Bisulfate 75 MG DAILY 05/14 1000 AC 05/14 PO 0909 Enoxaparin Sodium 40 MG DAILY 05/14 1000 AC 05/14 SC 0909 Escitalopram Oxalate 10 MG DAILY 05/14 1000 AC 05/14 PO 0909 Ezetimibe 10 MG DAILY 05/14 1000 AC 05/14 PO 0909 Fluticasone 2 PUF BID PRN 05/13 1745 AC Propionate INH Levothyroxine Sodium 0.1 MG DAILY AC 05/14 0700 AC 05/14 PO 0624 Metoprolol Succinate 50 MG DAILY 05/14 1000 AC 05/14 PO 0909 Montelukast Sodium 10 MG QPM 05/13 2200 AC 05/13 PO 2207 Non-Formulary 0 SEE ADMIN CRITERIA 05/13 1745 CAN Medication ANY Omeprazole 20 MG DAILY 05/14 1000 AC 05/14 PO 0909 Sodium Chloride 2 SPRAY DAILY 05/14 1000 AC TEZ Sodium Chloride 1,000 ML .Q10H 05/13 1730 AC 05/13 IV 05/14 1329 2351 Sodium Chloride 1,000 ML ONCE ONE 05/13 1500 DC 05/13 IV 05/13 2139 1521 Sodium Chloride 1,000 ML BOLUS ONE 05/13 1345 DC 05/13 IV 05/13 1444 1337 Laboratory Tests 05/14/16 0649: Anion Gap 11, Estimated GFR > 60, BUN/Creatinine Ratio 17.8, Total Bilirubin 0.9 , Direct Bilirubin 0.5 H, AST 176 H, ALT 85 H, Alkaline Phosphatase 60, Creatine Kinase 4674 H, Total Protein 5.6 L, Albumin 3.2 L, PT 12.1, INR 1.15 05/14/16 0644: CBC w Diff NO MAN DIFF REQ, RBC 4.41, MCV 89.6, MCH 30.1, RDW 14.4, MPV 8.9, Gran % 78.2 H, Lymphocytes % 13.1 L, Monocytes % 7.9, Eosinophils % 0.7, Basophils % 0.1, Absolute Granulocytes 7.8 H, Absolute Lymphocytes 1.3, Absolute Monocytes 0.8 H, Absolute Eosinophils 0.1, Absolute Basophils 0, PUBS MCHC 33.6 05/13/16 1502: Urinalysis MOD H, Urine Color YEL, Urine Clarity HAZY H, Urine pH 6.0, Ur Specific [place] >= 1.030, Urine Protein 100 H, Urine Ketones 15 H, Urine Nitrite NEG, Urine Bilirubin NEG@ICTO, Urine Urobilinogen 0.2, Ur Leukocyte Esterase NEG, Ur Microscopic SEDIMENT EXAMINED, Urine RBC 1-3, Urine WBC 5-10 H , Ur Epithelial Cells FEW, Urine Mucus MOD H, Urine Hemoglobin LARGE H, Urine Glucose NEG 05/13/16 1226: Anion Gap 12, Estimated GFR 54 L, BUN/Creatinine Ratio 21.0, Glucose 115 H, Uric Acid 6.8 H, Calcium 9.4, Phosphorus 4.1, Total Bilirubin 1.5 H, AST 203 H, ALT 83 H, Alkaline Phosphatase 73, Creatine Kinase 9775.0 H, Troponin I 0.04, Total Protein 6.6, Albumin 4.0, Globulin 2.6, Albumin/Globulin Ratio 1.5, PT 13.2 H, INR 1.26 H, CBC w Diff NO MAN DIFF REQ, RBC 4.98, MCV 89.9, MCH 30.4, RDW 14.2, MPV 8.4, Gran % 88.1 H, Lymphocytes % 6.1 L, Monocytes % 5.5, Eosinophils % 0.1, Basophils % 0.2, Absolute Granulocytes 13.6 H, Absolute Lymphocytes 0.9 L, Absolute Monocytes 0.8 H, Absolute Eosinophils 0, Absolute Basophils 0, PUBS MCHC 33.8 Vital Signs Date Time Temp Pulse Resp B/P Pulse O2 O2 Flow FiO2 Ox Delivery Rate 05/14 0909 80 110/60 05/14 0819 98.1 80 18 127/67 96 Room Air
--- NOTE | 2016-05-14 13:39 | NUR ---
wound care: requested by nursing to eval pt for skin alterations present on admission - hx obtained from pt - pt reports she had fallen at home, on floor for > 24 hours and was "shimmying" herself on the carpet on her knees and elbows in an effort to get oob - pt reports having lifeline in the house, but did not have necklace on at time of fall upon assessment, pt is noted wtih stuart elbows 2.5 x 1 cm unstageable pressure injuries with friction and sheer forced injuries bates dry desicated wound bases with periwound erythema 1 cm circumferentially - no c/o - stuart knees noted with redness and superficial scabbed abrasions as well recommendation: cleanse stuart elbows with ns fb bacitracin ointment telfa and dpd daily - pressure reduction with pillows - pt educated re: lifeline at home and stated an understanding
[2016-05-14 14:53] VITALS: BP 122/66
--- NOTE | 2016-05-14 15:49 | Patient Discharge Instructions ---
Discharge Instructions General Discharge Information You were seen/treated for: Acute rhadomyolysis Special Instructions: Please follow up with a primary doctor after discharge within 1 week. Please repeat LFT with primary doctor with improving transaminitis. Please continue physical therapy. Please continue Vit D supplementation and check the level in 8 weeks. Diet Continue normal diet: Yes Recommended Diet: Heart Healthy Activity Full Activity/No Limits: Yes Activity Self Limited: No Activity Limited to: Walking with Assistance Other activity limits: Fall precaution, increase activity as tolerated Acute Coronary Syndrome Inclusion Criteria At DC or during hospital stay patient has or had the following: ACS DIAGNOSIS No Discharge Core Measures Meds if any: Prescribed or Continued at Discharge Meds if any: NOT Prescribed or Continued at Discharge Congestive Heart Failure Inclusion Criteria At DC or during hospital stay patient has or had the following: CHF DIAGNOSIS No Discharge Core Measures Meds if any: Prescribed or Continued at Discharge Meds if any: NOT Prescribed or Continued at Discharge Cerebrovascular accident Inclusion Criteria At DC or during hospital stay patient has or had the following: CVA/TIA Diagnosis No Discharge Core Measures Meds if any: Prescribed or Continued at Discharge Meds if any: NOT Prescribed or Continued at Discharge Venous thromboembolism Inclusion Criteria VTE Diagnosis No VTE Type NONE VTE Confirmed by (Test) NONE Discharge Core Measures - Per Current guidelines, there needs to be overlap - treatment for the first 5 days of Warfarin therapy. - If discharged on Warfarin prior to 5 days of - overlap therapy, the patient will need to be - assessed for post discharge needs including - *Post discharge parental anticoagulation - *Warfarin and/or parental anticoagulation education - *Follow up date to check INR post discharge At least 5 days overlap therapy as Inpatient No Meds if any: Prescribed or Continued at Discharge Note: Overlap Therapy is Warfarin and Anticoagulant Meds if any: NOT Prescribed or Continued at Discharge
--- NOTE | 2016-05-14 15:58 | Discharge Summary ---
See Addendum Visit Information Visit Dates Admission Date: 05/13/16 Discharge Date: 05/18/16 Hospital Course Course Attending Physician: JOSÉ LUIS BARLOW MD Primary Care Physician: JOSÉ LUIS BARLOW MD Other Care Providers: Dr. Combs (cardiology) Hospital Course: 74-year-old female with pmh of hypertension, hyperlipidemia, carotid artery disease, and CAD with multiple drug-eluting stents (LAD in 2006, 2007) with subsequent negative nuclear stress test in 2011, asthma and hypothyroidism BIBA from home due to fall. As per the pt's daughter, who was the chief historian, the patient began to have several falls x 5 times in the last 6 wks. She lives alone. One day prior to admission, she had upper respiratory symptoms, nausea/ vomiting and watery diarrhea. Vomiting and diarrhea had resolved on its own. While she was trying to get up from the couch, she fell down and was unable to get up. She was on floor for whole day and night. She tried to crawl but could not move. She was incontinent of stool and urine. She denies any dizziness or lightheadedness, chest pain or discomfort, palpitations, loss of consciousness, seizure-like activity. She denies any fever or chills, abdominal pain, sick contacts, recent antibiotic exposure, recent travel. Initial vitals: 97.9F, pulse 74, respiratory rate 20, blood pressure 142/65 and oxygen saturation 96% on room air. On physical exam: General Appearance: Alert, Oriented X3, Cooperative, No Acute Distress Skin: No Rashes, No Breakdown, bruises b/l on knees, bruises and ulcer on the right elbow. HEEN:T Atraumatic, PERRLA, EOMI, Neck: Supple, No JVD, No thryomegaly, +2 Carotid Pulse wo Bruit, Lymphatic: Cervical nl, Cardiovascular: Regular Rate, Normal S1, Normal S2, No Murmurs Lungs: Normal Air Movement, Abdomen: Normal Bowel Sounds, Soft, abdominal tenderness on the left lower quadrant, pelvic tenderness, Neurological: Normal Speech, Strength at 5/5 X4 Ext, Normal Tone, Sensation Intact, Cranial Nerves 3- 12 NL, Reflexes 2+, Extremities: No Clubbing, No Cyanosis, No Edema, Normal Pulses, Vascular: Pulses Symmetrical Pertinent labs: WBC count 15.4, sodium 135, BUN/Cr 21/1.0, total bilirubin 1.5, AST 203, ALT 83, CK 9775, INR 1.26. Urine is moderately hazy with large urine hemoglobin and urine WBCs 5-10. EKG: Normal sinus rhythm, HR 79 QTc [address]-T wave changes. Head CT: No acute intracranial pathology Limited abdomen CT: Limited study with poor visualization of the liver and pancreas. If further imaging evaluation of the liver is desired, a CT with contrast or MRI would be recommended. Right renal cysts. Pelvic and bilateral knee x-ray: No evidence of fracture or dislocation. Osteoarthritis. Atherosclerotic disease involving femoropopliteal arteries bilaterally. Evidence of enthesopathy at the insertional site of the quadriceps tendon to the patella on the left. Patient was admitted to general medicine floor for following problem lists; 1. Acute rhabdomyolysis s/p fall: Initial CK was elevated to 9775 on 05/13. Cr, Potassium and calcium levels were normal. Patient was given IV fluid with monitoring of kidney function. CK level was decreased to 1563 on 05/16, and BUN/Cr remained normal. Please conitnue physical therapy and avoid fall risk. 2. Acute bronchitis with underlying asthma: She remained afebrile during admission and initial leukocytosis decreased to 9.9. However, she c/o chest congestion with cough. She had diffuse coarse rhonchi. She was given IV solumedrol and azithromycin with TRC/nebs. She remained on RA with oxygen Sat > 92%. Please follow up with a primary doctor after finishing po azithromycin and prednisone course. 3. Hypertension/Hx CAD s/p stent: We continued aspirin, clopidogrel, toprol xl 50mg daily 4. Hyperlipidemia: Dur to transaminitis, lipitor was held. We continued zetia 10mg daily 5. Transaminitis: AST: 203 -> 133, ALT 83-> 100, abdomen US was limited without no obvious liver lesions and lipitor 40mg was held. Please continue follow up a primary care physician for abnormal LFT. 6. Hypothyroidism: We continued po levothyroxine 0.1mg daily. TSH/fT4 were within normal limit. 7. Vitamin D deficiency: She had home dose of 50,000 IU weekly for Vit D deficiency. Current level was checked as low as 12.7. Please continue vitamin supplement and follow up level with a primary care doctor. Subcutaneous Lovenox was given for DVT prophylaxis, Heart healthy diet, Full code Allergies: Coded Allergies: NO KNOWN ALLERGIES (03/19/11) Disposition Summary Disposition Principal Diagnosis: Acute rhabdomyolisis s/p mechanical fall Acute bronchitis with underlying asthma Additional Diagnosis: HTN HLD Hx of CAD s/p stent Hypothyroidism Vit D deficiency Discharge Disposition: SNF Discharge Instructions General Discharge Information Code Status: Full Code Patient's Diet: Heart healthy diet Patient's Activity: Increase as tolerated Follow-Up Instructions/Appts: Please follow up with a primary doctor after discharge within 1 week. Please repeat LFT with primary doctor with improving transaminitis. Please continue physical therapy. Please continue Vit D supplementation and check the level in 8 weeks. Medications at Discharge Discharge Medications: Stop taking the following medications: Atorvastatin Calcium (Lipitor) 40 MG TAB ORAL DAILY Qty = 90 Fluticasone/Vilanterol (Breo Ellipta 200-25 Mcg INH) 200 MCG-25 MCG/DOSE BLST.W.DEV Qty = 60 Continue taking these medications: Aspirin (Ecotrin*) 81 MG TABLET.DR 1 Tablet ORAL DAILY Montelukast Sodium (Singulair) 10 MG TAB 1 Tablet ORAL Every night Qty = 90 Comments: Last Taken:04/09/15 Time: 9 PM CLOPIDOGREL BISULFATE (Clopidogrel) 75 MG TAB 1 Tablet ORAL DAILY Qty = 90 Comments: Last Taken:04/10/15 Time:2 PM Levothyroxine Sodium (Levothroid Sodium) 0.1 MG TAB 1 Tablet ORAL DAILY Qty = 90 Comments: Last Taken:04/10/15 Time:6 AM LEVOCETIRIZINE DIHYDROCHLORIDE (Levocetirizine Dihydrochloride) 5 MG TAB 1 Tablet ORAL Every night Qty = 90 Comments: Last Taken:NOT GIVEN IN THE HOSPITAL Time: Ezetimibe (Zetia) 10 MG TAB 1 Tablet ORAL DAILY Qty = 90 Comments: NOT GIVEN IN THE HOSPITAL Metoprolol Succinate (Metoprolol Succinate XL) [address] Tablet ORAL DAILY Qty = 90 Comments: Last Taken:04/10/15 Time:2 PM Budesonide/Formoterol Fumara (Symbicort 160-4.5 Mcg Inhaler) 160 MCG/4.5 MCG PUF 2 Puff Inhale through mouth TWICE DAILY Qty = 10 Comments: Last Taken:04/10/15 Time:9 AM Mometasone Furoate (Nasonex) 0.05 MG/Actuation SPR 2 [place] Both sides of nose DAILY Qty = 17 Comments: NOT GIVEN IN THE HOSPITAL Escitalopram Oxalate (Escitalopram Oxalate) 10 MG TAB 1 Tablet ORAL DAILY Qty = 90 Comments: Last Taken:04/10/15 Time 9 AM Omeprazole (Omeprazole) 20 MG CAPSULE.DR 1 Capsule ORAL DAILY Qty = 180 Start taking the following new medications: Ergocalciferol (Vitamin D2) (Vitamin D2) 50,000 UNIT CAPSULE 1 Capsule ORAL Once a Week Qty = 8 No Refills Prednisone (Prednisone) 20 MG TABLET 1 Tablet ORAL DAILY Qty = 6 No Refills Copies To: JOSÉ LUIS BARLOW MD Copies To: JOSÉ LUIS BARLOW MD
[2016-05-14 17:27] VITALS: BP 122/64
[2016-05-14 23:56] VITALS: BP 130/54
--- NOTE | 2016-05-15 00:50 | NUR ---
ALERT AND ORIENTED X 3. VITAL SIGNS STABLE. ON ROOM AIR. ABRASIONS TO ELBOWS ARE OPEN TO AIR. NO DISCOMFORT NOTED WILL CONTINUE TO MONITOR
[2016-05-15] MEDS ORDERED: VITAMIN D250000 UNIT PO (08:04)
[2016-05-15 08:07] VITALS: BP 138/67
--- NOTE | 2016-05-15 10:06 | PN- Housestaff ---
See Addendum Subjective Follow-up For: Mechanical fall Subjective: Patient seen and examined. He is seen sitting upright in her bed resting comfortably. She appears to be in no acute distress. She reports decreased appetite but otherwise feels fine and is asking to be discharged home. She reports working with physical therapy today and "doing just fine". Additionally she denies any headache, fever, chills, chest pain, palpitations, shortness of breath, nausea, vomiting, diarrhea. No overnight events reported. Review of Systems Constitutional: Reports: see HPI. Objective Last 24 Hrs of Vital Signs/I&O Vital Signs Date Time Temp Pulse Resp B/P Pulse O2 O2 Flow FiO2 Ox Delivery Rate 05/15 08 98.4 77 20 138/67 95 Room Air 05/14 2356 97.9 79 19 130/54 95 Room Air 05/14 1727 98.7 82 18 122/64 96 05/14 1546 Room Air 05/14 1541 Room Air 05/14 1453 78 122/66 Intake & Output 05/15 1600 05/15 0800 05/15 0000 Intake Total 50 300 Output Total 250 550 Balance -250 50 -250 Intake, Oral 50 300 Output, Urine 250 550 Physical Exam General Appearance: Alert, Oriented X3, Cooperative, No Acute Distress Other Physical Findings: General -well-developed, well-nourished elderly woman in no acute distress HEENT - NCAT, PERRL, EOMI, anicteric sclera Cardio - S1, S2 w/o murmurs/gallops/rubs Resp - CTA bilaterally w/o wheezing/rhochi/crackles GI - soft, nontender, nondistended, bowel sounds present Neuro - Awake and alert, CN II - XII grossly intact Extremities - no edema, pulses intact Current Medications: Current Medications Sig/Eliceo Start time Last Medication Dose Route Stop Time Status Admin Acetaminophen 650 MG Q8P PRN 05/13 1830 AC PO Aspirin Buffered 81 MG 05/14 AC 05/14 PO 224 Budesonide/ 2 PUF BID 05/13 2199 AC 05/15 Formoterol Fumarate INH 926 Clopidogrel Bisulfate 75 MG DAILY 05/14 1000 AC 05/15 PO 927 Enoxaparin Sodium 40 MG DAILY 05/14 999 AC 05/15 SC 09 Escitalopram Oxalate 10 MG DAILY 05/14 999 AC 05/15 PO 0928 Ezetimibe 10 MG DAILY 05/14 1000 AC 05/15 PO 0928 Fluticasone 2 PUF BID PRN 05/13 1745 AC Propionate INH Levothyroxine Sodium 0.1 MG DAILY AC 05/14 0700 AC 05/15 PO 0600 Metoprolol Succinate 50 MG DAILY 05/14 1000 AC 05/15 PO 0928 Montelukast Sodium 10 MG QPM 05/13 2200 AC 05/14 PO 2247 Omeprazole 20 MG DAILY 05/14 1000 AC 05/15 PO 0928 Patient Medication 1 ED .STK-MED ONE 05/14 1337 DC Teaching ED 05/14 1338 Sodium Chloride 2 SPRAY DAILY 05/14 1000 AC 05/15 TEZ 0927 Sodium Chloride 1,000 ML .Q10H 05/13 1730 DC 05/13 IV 05/14 1329 2351 Last 24 Hrs of Lab/Ronald Results Last 24 Hrs of Labs/Mics: Laboratory Tests 05/15/16 0705: Anion Gap 4 L, Estimated GFR > 60, BUN/Creatinine Ratio 16.3, Creatine Kinase 2676 H Assessment/Plan Assessment: Patient reports doing well today and is requesting to be discharged home stating that she "really doesn't want to go to rehabilitation". Physical therapy assessment today determined that she is currently an assist of 1 and would benefit from short-term rehabilitation placement. The attending discuss this with her son and it was determined this would be the best option for her as she has had multiple falls recently. Patient is an anticipated discharge to short- term rehabilitation on Tuesday. Serum chemistries have demonstrated improvement of her creatinine kinase. Problem list: -Mechanical fall without any musculoskeletal injury -Elevated serum creatinine kinase without renal insufficiency -Transaminitis -Hypothyroidism, on levothyroxin -Hyperlipidemia, on -CAD status post drug-eluting stent (2006, 2007), on Plavix/aspirin Plan: -Vitamin B12/TSH/T4/vitamin D all within normal limits -Creatinine kinase improved to 2676 today -Monitor liver function tests -PT assessment, assist of 1 discharge to STR -Discharge to short-term rehabilitation on Tuesday -DVT prophylaxis with Lovenox Problem List: 1. Rhabdomyolysis Pain Ratin Pain Location: None Pain Goal: Remain pain free Pain Plan: As noted in plan Tomorrow's Labs & Rationales: BEP - assessment of renal insufficiency CK - progression of rhabdomyolysis LFTs - transaminitis
[2016-05-15 15:40] VITALS: BP 144/60
[2016-05-15 23:52] VITALS: BP 148/68
[2016-05-16 08:22] VITALS: BP 154/94
--- NOTE | 2016-05-16 08:45 | PN- Housestaff ---
Subjective Follow-up For: Mechanical fall Subjective: Patient seen and examined. She is seen sitting upright in bed resting comfortably. She appears to be in no acute distress. She has no complaints, but does have reservations about being discharged to short term rehabiliation as she feels she does not need it despite having multiple falls in recent time. Additionally she denies any headache, fever, chills, chest pain, shortness of breath, nausea, vomiting, diarrhea. No overnight events reported. Review of Systems Constitutional: Reports: see HPI. Objective Last 24 Hrs of Vital Signs/I&O Vital Signs Date Time Temp Pulse Resp B/P Pulse O2 O2 Flow FiO2 Ox Delivery Rate 05/16 1704 93 Room Air 05/16 1555 98.1 79 18 126/72 92 05/16 1306 98.1 75 20 154/94 05/16 0822 98.1 75 20 154/94 92 Room Air 05/16 0809 93 Room Air Room Air 05/16 0800 95 Room Air Room Air 05/16 0000 Room Air 05/15 2352 98.6 72 20 148/68 93 Room Air 05/15 1910 Room Air Room Air Intake & Output 05/16 1600 05/16 0800 / 0000 Intake Total 240 120 720 Output Total 400 300 450 Balance -160 -180 270 Intake, Oral 240 120 720 Output, Urine 400 300 450 Physical Exam General Appearance: Alert, Oriented X3, Cooperative, No Acute Distress Other Physical Findings: General -well-developed, well-nourished elderly woman in no acute distress HEENT - NCAT, PERRL, EOMI, anicteric sclera Cardio - S1, S2 w/o murmurs/gallops/rubs Resp - CTA bilaterally w/o wheezing/rhochi/crackles GI - soft, nontender, nondistended, bowel sounds present Neuro - Awake and alert, CN II - XII grossly intact Extremities - no edema, pulses intact Current Medications: Current Medications Sig/Eliceo Start time Last Medication Dose Route Stop Time Status Admin Acetaminophen 650 MG Q8P PRN 05/13 1830 AC PO Albuterol Sulfate 3 ML EVERY 4 HRS/AWAKE 05/15 1999 AC 05/16 INH 1643 Aspirin Buffered 81 MG 2200 05/14 2200 AC 05/15 PO 2152 Azithromycin 500 MG ONCE ONE 05/17 1415 AC Dextrose/Water 250 ML IV 05/17 1514 Azithromycin 250 MG DAILY 05/17 1000 CAN PO Azithromycin 500 MG ONCE ONE 05/16 1400 DC Dextrose/Water 250 ML IV 05/16 1459 Budesonide/ 2 PUF BID 05/13 2200 AC 05/16 Formoterol Fumarate INH 1049 Clopidogrel Bisulfate 75 MG DAILY 05/14 1000 AC 05/16 PO 1049 Enoxaparin Sodium 40 MG DAILY 05/14 1000 AC 05/16 SC 1048 Escitalopram Oxalate 10 MG DAILY 05/14 1000 AC 05/16 PO 1049 Ezetimibe 10 MG DAILY 05/14 1000 AC 05/16 PO 1049 Fluticasone 2 PUF BID PRN 05/13 1745 AC Propionate INH Guaifenesin/Codeine 10 ML Q6P PRN 05/15 1630 AC 05/16 Phosphate PO 1057 Levothyroxine Sodium 0.1 MG DAILY AC 05/14 0700 AC 05/16 PO 0627 Methylprednisolone 40 MG ONCE ONE 05/16 1415 DC 05/16 IV 05/16 1416 1548 Metoprolol Succinate 50 MG DAILY 05/14 1000 AC 05/16 PO 1049 Montelukast Sodium 10 MG QPM 05/13 2200 AC 05/15 PO 2152 Omeprazole 20 MG DAILY 05/14 1000 AC 05/16 PO 1049 Sodium Chloride 2 SPRAY DAILY 05/14 1000 AC 05/16 TEZ 1049 Last 24 Hrs of Lab/Ronald Results Last 24 Hrs of Labs/Mics: Laboratory Tests 05/16/16 0835: Anion Gap 3 L, Estimated GFR > 60, BUN/Creatinine Ratio 12.5, Total Bilirubin 0.7, Direct Bilirubin 0.5 H, AST 133 H, ALT 100 H, Alkaline Phosphatase 58, Creatine Kinase 1563 H, Total Protein 5.6 L, Albumin 3.2 L 05/15/16 1724: Urine Color YEL, Urine Clarity HAZY H, Urine pH 6.0, Ur Specific [place] 1.020, Urine Protein 30 H, Urine Ketones NEG, Urine Nitrite POS H, Urine Bilirubin NEG, Urine Urobilinogen 0.2, Ur Leukocyte Esterase LARGE H, Ur Microscopic SEDIMENT EXAMINED, Urine RBC 1-3, Urine WBC 50-75 H, Ur Epithelial Cells MOD H , Hyaline Casts RARE H, Urine Mucus FEW, Urine Hemoglobin MOD H, Urine Glucose NEG Assessment/Plan Assessment: Patient feels well today and is an anticipated discharge to short term rehabiliation center today. Her creatinine kinase has improved since admission. She is to follow up with her primary care provider after discharge. Problem list: -Mechanical fall without any musculoskeletal injury -Elevated serum creatinine kinase without renal insufficiency -Transaminitis -Hypothyroidism, on levothyroxine -Hyperlipidemia -CAD status post drug-eluting stent (2006, 2007), on Plavix/aspirin Plan: -Vitamin B12/TSH/T4/vitamin D all within normal limits -Creatinine kinase improved to 2676 today -Monitor liver function tests -PT assessment, assist of 1 discharge to [facility] -Discharge to short-term rehabilitation -DVT prophylaxis with Lovenox Problem List: 1. Fall Pain Ratin Pain Location: None Pain Goal: Remain pain free Pain Plan: As noted in plan Tomorrow's Labs & Rationales: None
[2016-05-16 13:06] VITALS: BP 154/94
--- NOTE | 2016-05-16 14:00 | NUR ---
PATIENT WIH INCREASED WHEEZING AND CRACKLES TO LUNGS, SEEN BY MD GODLSTEIN, NO D/C TODAY, WILL START IV ANTIBIOTICS AND STEROIDS PER MD ORDER AND REASSESS TOMORROW.
--- NOTE | 2016-05-16 14:12 | PN- Att Addend ---
Attending Addendum Attending Brief Note Mrs. Francis was interviewed and examined. Her EMR was reviewed.She does complain of chest congestion and cough today. She is afebrile. Notable on physical exam is diffuse coarse rhonchi. Her abnormal chemistries continued to improve. Is Tito status post Guerda fall with elevated CPK without renal impairment. She has also had elevation of her LFTs. At present he appears to be developing an acute asthmatic bronchitis. We should treat this lady's condition with intravenous azithromycin and steroids.we should also continue nebs. We should delay her transfer to short- term repeat rehabilitation pending improvement in her pulmonary status.
[2016-05-16 15:55] VITALS: BP 126/72
[2016-05-17 00:33] VITALS: BP 146/64
--- NOTE | 2016-05-17 07:20 | PN- Housestaff ---
Subjective Follow-up For: - Rhabdomyolysis Subjective: Ms. Francis was comfortable this morning. Still complained to persistent cough, which improved compared to yesterday as per the patient. Vitals remained stable overnight. Review of Systems Constitutional: Reports: see HPI. Objective Last 24 Hrs of Vital Signs/I&O Vital Signs Date Time Temp Pulse Resp B/P Pulse O2 O2 Flow FiO2 Ox Delivery Rate 05/17 0033 97.9 71 20 146/64 96 05/16 2134 94 Room Air 05/16 1704 93 Room Air 05/16 1600 92 Room Air 05/16 1555 98.1 79 18 126/72 92 05/16 1306 98.1 75 20 154/94 05/16 0822 98.1 75 20 154/94 92 Room Air 05/16 0809 93 Room Air Room Air 05/16 0800 95 Room Air Room Air Intake & Output 05/17 0800 05/17 0000 05/16 1600 Intake Total 880 240 Output Total 350 600 400 Balance -350 280 -160 Intake, IV 280 Intake, Oral 600 240 Output, Urine 350 600 400 Physical Exam General Appearance: No Acute Distress Other Physical Findings: General Exam: AAOx0, No acute distress, Skin: No rashes, no breakdown HEENT: PERRLA, EOMI Neck: Supple, No JVD No cervical lymphadenopathy CVS: Reg Rate, Normal S1,S2, No MGR Resp: Normal air entry, bilateral ronchi. Abdomen: Soft, No tenderness, Normal Bowel Sounds. Neuro: Normal Speech, Strength 5/5 b/l x 4 extremities, Sensation intact, CN III -XII NL, Reflexes 2+ Extremities: No cyanosis, No pedal edema Current Medications: Current Medications Sig/Eliceo Start time Last Medication Dose Route Stop Time Status Admin Acetaminophen 650 MG Q8P PRN 05/13 1830 AC PO Albuterol Sulfate 3 ML EVERY 4 HRS/AWAKE 05/15 1999 AC 05/16 INH 2042 Aspirin Buffered 81 MG 2200 05/14 2199 AC 05/16 PO 210 Azithromycin 500 MG ONCE ONE 05/17 1415 AC Dextrose/Water 250 ML IV 05/17 1514 Azithromycin 250 MG DAILY 05/17 1000 CAN PO Azithromycin 500 MG ONCE ONE 05/16 1400 DC 05/16 Dextrose/Water 250 ML IV 05/16 1459 1715 Budesonide/ 2 PUF BID 05/13 2199 AC 05/16 Formoterol Fumarate INH 210 Clopidogrel Bisulfate 75 MG DAILY 05/14 1000 AC 05/16 PO 1049 Enoxaparin Sodium 40 MG DAILY 05/14 1000 AC 05/16 SC 1048 Escitalopram Oxalate 10 MG DAILY 05/14 1000 AC 05/16 PO 1049 Ezetimibe 10 MG DAILY 05/14 1000 AC 05/16 PO 1049 Fluticasone 2 PUF BID PRN 05/13 1745 AC Propionate INH Guaifenesin/Codeine 10 ML Q6P PRN 05/15 1630 AC 05/16 Phosphate PO 2102 Levothyroxine Sodium 0.1 MG DAILY AC 05/14 0700 AC 05/17 PO 0658 Methylprednisolone 40 MG ONCE ONE 05/16 1415 DC 05/16 IV 05/16 1416 1548 Metoprolol Succinate 50 MG DAILY 05/14 1000 AC 05/16 PO 1049 Montelukast Sodium 10 MG QPM 05/13 2200 AC 05/16 PO 2102 Omeprazole 20 MG DAILY 05/14 1000 AC 05/17 PO 0658 Sodium Chloride 2 SPRAY DAILY 05/14 1000 AC 05/16 TEZ 1049 Last 24 Hrs of Lab/Ronald Results Last 24 Hrs of Labs/Mics: Laboratory Tests 05/16/16 0835: Anion Gap 3 L, Estimated GFR > 60, BUN/Creatinine Ratio 12.5, Total Bilirubin 0.7, Direct Bilirubin 0.5 H, AST 133 H, ALT 100 H, Alkaline Phosphatase 58, Creatine Kinase 1563 H, Total Protein 5.6 L, Albumin 3.2 L Assessment/Plan Assessment: She is an older lady w/ a PMH of hypothyroidism, CAD is being evaluated for a mechanical fall likely causing multiple injuries and elevated CK. Admission diagnosis: 1. Deconditioning 2. Rhabdomyolysis Below is the problem list and plan: 1. Rhabdomyolysis sec to fall- likely deconditoning. Serum B12, TSH, vitamin D- pending Contninue aggressive hydration w/ a close watch on pulmonary status for the next 24 hrs. Sr Cr stable. CK improved after hydration for the last 24 hrs 9775-->1563. Leucocytosis improved 15.4-->9.9(likely reactive). 2. Abnormal UA- has epithelial cell contamination. Recheck UA. Pt has no symptoms. Elevated Hb lkely from myoglobin. No abx 3. Abnormal transaminases- Improved in the last 24 hrs. AST, ALT w/ normal Alkaline phosphatase are likely from the muscle and not from the liver. AST 203- ->133. No further liver function tests needed at this time. 3. Deconditioning- PT evaluation recommeded STR. Fall precautions. #4 cough- Likely asthma exacerbation. Pt was started on azithromycin, and steroids. She is to be discharged on steroids. No leucocytosis or fever. #5 abdominal pain- Pain in the right lower quadrant. Abdominal x ray has been ordered. 4. DVT prophylaxis- lovenox. Problem List: 1. Pyuria 2. Elbow abrasion 3. Knee contusion Pain Ratin Pain Location: right left quadrant Pain Goal: Pain 4 or less Pain Plan: tylenol prn Tomorrow's Labs & Rationales: No labs necessary.
[2016-05-17 08:35] VITALS: BP 140/77
[2016-05-17] MEDS ORDERED: AZITHROMYCIN500 M3 PO (10:22)
--- NOTE | 2016-05-17 10:35 | PN- Att Addend ---
Attending Addendum Attending Brief Note Patient complaining of pain in the right lower abdomen from coughing but she might have pulled a muscle, but will get an x-ray before discharging the patient to short-term rehabilitation area data x-rays are okay then we will proceed, I will follow the patient at short-term rehabilitation see the see the W 10 and CMR. 24 TOTALS 05/17 0000 02 0000 Intake Total 1240 1420 Output Total 1300 1300 Balance -60 120 Intake, IV 280 Intake, Oral 960 1420 Output, Urine 1300 1300 Current Medications Sig/Eliceo Start time Last Medication Dose Route Stop Time Status Admin Acetaminophen 650 MG Q8P PRN 05/13 1830 AC PO Albuterol Sulfate 3 ML EVERY 4 HRS/AWAKE 05/15 2000 AC 05/17 INH 0746 Aspirin Buffered 81 MG 2200 05/14 2200 AC 05/16 PO 2102 Azithromycin 500 MG ONCE ONE 05/17 1415 AC Dextrose/Water 250 ML IV 05/17 1514 Azithromycin 250 MG DAILY 05/17 1000 CAN PO Azithromycin 500 MG ONCE ONE 05/16 1400 DC 05/16 Dextrose/Water 250 ML IV 05/16 1459 1715 Budesonide/ 2 PUF BID 05/13 2200 AC 05/16 Formoterol Fumarate INH 2102 Clopidogrel Bisulfate 75 MG DAILY 05/14 1000 AC 05/16 PO 1049 Enoxaparin Sodium 40 MG DAILY 05/14 1000 AC 05/16 SC 1048 Escitalopram Oxalate 10 MG DAILY 05/14 1000 AC 05/16 PO 1049 Ezetimibe 10 MG DAILY 05/14 1000 AC 05/16 PO 1049 Fluticasone 2 PUF BID PRN 05/13 1745 AC Propionate INH Guaifenesin/Codeine 10 ML Q6P PRN 05/15 1630 AC 05/16 Phosphate PO 2102 Levothyroxine Sodium 0.1 MG DAILY AC 05/14 0700 AC 05/17 PO 0658 Methylprednisolone 40 MG ONCE ONE 05/16 1415 DC 05/16 IV 05/16 1416 1548 Metoprolol Succinate 50 MG DAILY 05/14 1000 AC 05/16 PO 1049 Montelukast Sodium 10 MG QPM 05/13 2200 AC 05/16 PO 2102 Omeprazole 20 MG DAILY 05/14 1000 AC 05/17 PO 0658 Sodium Chloride 2 SPRAY DAILY 05/14 1000 AC 05/16 TEZ 1049 Laboratory Tests 05/16/16 0835: Anion Gap 3 L, Estimated GFR > 60, BUN/Creatinine Ratio 12.5, Total Bilirubin 0.7, Direct Bilirubin 0.5 H, AST 133 H, ALT 100 H, Alkaline Phosphatase 58, Creatine Kinase 1563 H, Total Protein 5.6 L, Albumin 3.2 L 05/15/16 1724: Urine Color YEL, Urine Clarity HAZY H, Urine pH 6.0, Ur Specific [place] 1.020, Urine Protein 30 H, Urine Ketones NEG, Urine Nitrite POS H, Urine Bilirubin NEG, Urine Urobilinogen 0.2, Ur Leukocyte Esterase LARGE H, Ur Microscopic SEDIMENT EXAMINED, Urine RBC 1-3, Urine WBC 50-75 H, Ur Epithelial Cells MOD H , Hyaline Casts RARE H, Urine Mucus FEW, Urine Hemoglobin MOD H, Urine Glucose NEG
[2016-05-17] MEDS ORDERED: PREDNISONE20 M1 PO (11:58)
[2016-05-17 16:30] VITALS: BP 128/64
--- NOTE | 2016-05-17 16:43 | RADIOLOGY REPORT ---
EXAMINATION: XR ABDOMEN MULTIPLE VIEWS CLINICAL INDICATION: Abdominal pain. Right lower quadrant abdominal tenderness. COMPARISON: Abdominal ultrasound of 05/13/2016. TECHNIQUE: AP views of the abdomen and pelvis. FINDINGS: The bowel gas pattern is normal without evidence of ileus or obstruction. Moderate amount of stool is noted in the ascending and descending colon. No abnormal soft tissue calcifications. Diffuse degenerative changes are noted in the spine. IMPRESSION: No evidence of bowel obstruction or abnormal bowel dilatation. Moderate amount of stool in the descending colon and descending colon.
[2016-05-18 00:01] VITALS: BP 140/66
--- NOTE | 2016-05-18 05:54 | PN- Housestaff ---
Subjective Follow-up For: - Mechanical fall-elevated CK Subjective: The patient was comfortable this morning. Did not have any complaints. Cough improved significantly compared to yesterday. Did not complain of any abdominal pain. Went over the results of abdominal x-ray with the patient. Remained afebrile. Vitals were stable overnight. Review of Systems Constitutional: Reports: see HPI. Objective Last 24 Hrs of Vital Signs/I&O Vital Signs Date Time Temp Pulse Resp B/P Pulse O2 O2 Flow FiO2 Ox Delivery Rate 05/18 1232 97.6 63 20 142/70 05/18 1032 63 142/70 05/18 0800 96 Room Air 05/18 0759 97.6 63 20 142/70 94 Room Air 05/18 0753 93 Room Air Room Air 05/18 0001 98.1 73 19 140/66 95 Room Air 05/18 0000 Room Air Intake & Output 05/18 1600 05/18 0800 05/18 0000 Intake Total 500 240 240 Output Total Balance 500 240 240 Intake, IV 0 Intake, Oral 500 240 240 Number 1 0 Bowel Movements Physical Exam General Appearance: No Acute Distress Other Physical Findings: General Exam: AAOx3, No acute distress, Skin: No rashes, no breakdown HEENT: PERRLA, EOMI Neck: Supple, No JVD No cervical lymphadenopathy CVS: Reg Rate, Normal S1,S2, No MGR Resp: Normal air entry, no ronchi/rales Abdomen: Soft, No tenderness, Normal Bowel Sounds Neuro: Normal Speech, Strength 5/5 b/l x 4 extremities, Sensation intact, CN III -XII NL, Reflexes 2+ Extremities: No cyanosis, pedal edema Current Medications: Current Medications Sig/Eliceo Start time Last Medication Dose Route Stop Time Status Admin Acetaminophen 650 MG .STK-MED ONE 05/17 2127 DC PO 05/17 2128 Acetaminophen 650 MG Q8P PRN 05/13 1830 DCD 05/17 PO 2134 Albuterol Sulfate 3 ML EVERY 4 HRS/AWAKE 05/15 1999 DCD 05/18 INH 1142 Aspirin Buffered 81 MG 2200 05/14 220 DCD 05/17 PO 2133 Azithromycin 250 MG DAILY 05/17 1152 DCD 05/18 PO 1032 Bisacodyl 10 MG DAILY PRN 05/18 1230 DCD SD Budesonide/ 2 PUF BID 05/13 2199 DCD 05/18 Formoterol Fumarate INH 1033 Cholecalciferol 1,000 IU DAILY 05/17 1348 DCD 05/18 PO 1033 Clopidogrel Bisulfate 75 MG DAILY 05/14 1000 DCD 05/18 PO 1033 Enoxaparin Sodium 40 MG DAILY 05/14 1000 DCD 02 SC 1031 Escitalopram Oxalate 10 MG DAILY 05/14 1000 DCD 02 PO 1033 Ezetimibe 10 MG DAILY 05/14 1000 DCD 05/18 PO 1032 Fluticasone 2 PUF BID PRN 05/13 1745 DCD Propionate INH Guaifenesin/Codeine 10 ML Q6P PRN 05/15 1630 DCD 05/17 Phosphate PO 2133 Ibuprofen 600 MG 4 TIMES/DAY PRN 05/17 1200 DCD PO Levothyroxine Sodium 0.1 MG DAILY AC 05/14 0700 DCD 05/18 PO 0557 Metoprolol Succinate 50 MG DAILY 05/14 1000 DCD 05/18 PO 1032 Montelukast Sodium 10 MG QPM 05/13 2200 DCD 05/17 PO 2133 Omeprazole 20 MG DAILY 05/14 1000 DCD 05/18 PO 1032 Patient Medication 1 ED .STK-MED ONE 05/18 1350 DC Teaching ED 05/18 1351 Prednisone 40 MG DAILY 05/17 1330 DCD 05/18 PO 1033 Sodium Chloride 2 SPRAY DAILY 05/14 1000 DCD 05/18 TEZ 1034 Assessment/Plan Assessment: She is an older lady w/ a PMH of hypothyroidism, CAD is being evaluated for a mechanical fall likely causing multiple injuries and elevated CK. Admission diagnosis: 1. Deconditioning 2. Rhabdomyolysis Below is the problem list and plan: 1. Rhabdomyolysis sec to fall- likely deconditoning. Contninue aggressive hydration w/ a close watch on pulmonary status for the next 24 hrs. Sr Cr stable. CK improved after hydration. Leucocytosis improved. 2. Abnormal UA- has epithelial cell contamination. Pt has no symptoms. Elevated Hb lkely from myoglobin. No abx 3. Abnormal transaminases- Improved in the last 24 hrs. AST, ALT w/ normal Alkaline phosphatase are likely from the muscle and not from the liver. No further liver function tests needed at this time. 3. Deconditioning- PT evaluation recommeded STR. Fall precautions. #4 cough- Likely asthma exacerbation. Pt was started on azithromycin, and steroids. She is to be discharged on steroids. No leucocytosis or fever. #5 abdominal pain- Pain in the right lower quadrant resolved. Abdominal x ray revealed no obstruction. 4. DVT prophylaxis- lovenox. Problem List: 1. Pyuria 2. Elbow abrasion 3. Fall 4. Rhabdomyolysis 5. Knee contusion Pain Ratin Pain Location: None Pain Goal: Pain 4 or less Pain Plan: Tylenol when necessary Tomorrow's Labs & Rationales: No labs necessary. Patient to be discharged
[2016-05-18 07:59] VITALS: BP 142/70
[2016-05-18 12:32] VITALS: BP 142/70
--- NOTE | 2016-05-18 18:30 | PN- Att Addend ---
Attending Addendum Attending Brief Note No major issues. Vital signs are stable, no fever no no new changes on physical to call symptoms seem improved, patient going to [facility] today I will follow the patient over there, see discharge summary and C MR and W 10. Vital Signs Date Time Temp Pulse Resp B/P Pulse O2 O2 Flow FiO2 Ox Delivery Rate 05/18 1232 97.6 63 20 142/70 05/18 1032 63 142/70 Intake & Output 05/18 1600 Intake Total 500 Output Total Balance 500 Intake, Oral 500 Number 1 Bowel Movements
== END 2016-05-18 13:14 | DRG 565 ==
LOC: ENRESERVTM → ENRESERVDT → ERH 11:45 → ENPENDDIS 16:52 → 2NB 16:52 → ERHI 16:52 → 2NB 19:04
PROVIDERS: Emergency Medicine; Internal Medicine; ADMIT Internal Medicine
DX: T79.6XXA Traumatic ischemia of muscle, initial encounter (principal); E87.1 Hypo-osmolality and hyponatremia; E86.0 Dehydration; J45.901 Unspecified asthma with (acute) exacerbation; K21.9 Gastro-esophageal reflux disease without esophagitis; E78.5 Hyperlipidemia, unspecified; I25.2 Old myocardial infarction; W08.XXXA Fall from other furniture, initial encounter; Y92.008 Other place in unspecified non-institutional (private) residence as the place of occurrence of the external cause; S50.312A Abrasion of left elbow, initial encounter; S50.311A Abrasion of right elbow, initial encounter; E55.9 Vitamin D deficiency, unspecified; S80.02XA Contusion of left knee, initial encounter; S80.01XA Contusion of right knee, initial encounter; E03.9 Hypothyroidism, unspecified; Z91.81 History of falling; I25.10 Atherosclerotic heart disease of native coronary artery without angina pectoris
CPT/HCPCS: 2NBSP; 36415; 72170; 73562-LT; 73562-RT; 74020; 81001; 82436; 93005; 93010; 97110-GO; 97116-GO; 97161-GP; 97530-GO; 99291; J0456; J1650; J2920; J3490; J7060

== ENCOUNTER 2017-05-07 04:05 | Observation (INO) | payer OTHER ==
[~2017-05-07] VITALS: Ht 152.4 cm; Wt 81.6 kg
[~2017-05-07 04:05] MED LIST changes: +ATORVASTATIN CA40 M1 PO; +AZITHROMYCIN500 M3 PO; +BREO ELLIPTA 21 EACH; +CLOPIDOGREL75 M1 PO; -CLOPIDOGREL75 MG PO; +ESCITALOPRAM OX10 MG PO; -ESCITALOPRAM10 MG PO; +LEVOCETIRIZINE D5 M1 PO; -LEVOCETIRIZINE D5 MG PO; -LEVOTHROID SOD0.1 MG PO; +LEVOTHYROXINE100 MC1 PO; -METOPROLOL SUCC50 M1 PO; +METOPROLOL SUCC50 M2 PO; -MOMETASONE0.05 MG/Ac NASB; +NASONEX17 GM NASB; +OMEPRAZOLE20 M2 PO; +PREDNISONE20 M1 PO; +SINGULAIR10 M1 PO; -SINGULAIR10 MG PO; -SYMBICORT 160/41 PUF INH; +SYMBICORT 16010.2 GM INH; +VITAMIN D250000 UNIT PO; +ZETIA10 M1 PO; -ZETIA10 MG PO
--- NOTE | 2017-05-07 04:07 | ED MVC/FALL/TRAUMA COMPLAINT ---
History of Present Illness General Chief Complaint: Low Back Pain/Injury Stated Complaint: BACK PAIN SP FALL Source: patient Exam Limitations: no limitations Vital Signs & Intake/Output Vital Signs & Intake/Output Vital Signs Date Time Temp Pulse Resp B/P B/P Pulse O2 O2 Flow FiO2 Mean Ox Delivery Rate 05/07 1004 98.7 78 18 136/65 96 Room Air 05/07 0725 98.5 91 18 168/72 97 Room Air 05/07 0407 98.5 75 20 174/75 98 Room Air Allergies Coded Allergies: NO KNOWN ALLERGIES (03/19/11) Triage Nurses Notes Reviewed? yes Onset: Abrupt Duration: hour(s): Timing: recent history Severity: moderate Injuries/Fall Location: back, lower extremity Method of Injury: fall Loss of Consciousness: no loss of consciousness Modifying Factors: Improves With: rest. Worsens With: movement, palpation. Associated Symptoms: muscle spasms : No Patient currently breastfeeds: No HPI: 76 yo woman presents after 2 falls today. The first occured 8:30am. She remained on the ground until 4:30pm. At which time, her daughter arrived and helped her to get into bed. She then awoke to go to the bathroom and fell off the bed again approximately 4 hours ago. SHe lay there for several hours and pushed her life alert button. She denies head injury, LOC, syncopal symptoms. (Meg BUENO,Gamaliel King) Reconcile Medications Aspirin (Ecotrin*) 81 MG TABLET.DR 1 TAB PO QPM HEART HEALTH (Reported) Atorvastatin Calcium 40 MG TABLET 1 TAB PO DAILY CHOLESTEROL (Reported) Budesonide/Formoterol Fumarate (Symbicort 160-4.5 Mcg Inhaler) 160 MCG-4.5 MCG/ ACTUATION HFA.AER.AD 2 PUF INH BID ASTHMA (Reported) Clopidogrel Bisulfate (Clopidogrel) 75 MG TABLET 1 TAB PO DAILY BLOOD THINNER (Reported) Cyclobenzaprine HCl 10 MG TABLET 1 TAB PO TID PRN MUSCLE SPASMS (Reported) Escitalopram Oxalate 10 MG TABLET 1 TAB PO DAILY MENTAL HEALTH (Reported) Ezetimibe (Zetia) 10 MG TABLET 1 TAB PO DAILY CHOLESTEROL (Reported) Levocetirizine Dihydrochloride 5 MG TABLET 1 TAB PO QPM ASTHMA (Reported) Levothyroxine Sodium 100 MCG TABLET 1 TAB PO DAILY THYROID (Reported) Levothyroxine Sodium 88 MCG TABLET 1 TAB PO DAILY THYROID (Reported) Meloxicam 15 MG TABLET 1 TAB PO DAILY PAIN/INFLAMMATION (Reported) Metoprolol Succinate 50 MG TAB.ER.24H 1 TAB PO DAILY HEART (Reported) Mometasone Furoate (Nasonex) 50 MCG SPRAY.PUMP 2 SPRAY NASB DAILY NASAL PROBLEMS (Reported) Montelukast Sodium (Singulair) 10 MG TABLET 1 TAB PO DAILY ASTHMA (Reported) Omeprazole 20 MG CAPSULE.DR 1 CAP PO DAILY GERD (Reported) (Tad Carranza MD) Past History Medical History Any Pertinent Medical History? 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 Left arthroscopic rotator cuff repair, Left knee arthroscopic repair Psychosocial History Who do you live with Family Services at Home None What is your primary language Peruvian Family History Family History, If Any: MOTHER FH: diabetes mellitus FH: esophageal cancer FH: heart attack, Onset: 60+. FATHER FH: prostate cancer Hx Contributory? No (Meg BUENO,Gamaliel King) Review of Systems Review of Systems Constitutional: Reports: no symptoms. Eyes: Reports: no symptoms. Ears, Nose, Throat, Mouth: Reports: no symptoms. Respiratory: Reports: no symptoms. Cardiovascular: Reports: no symptoms. Gastrointestinal/Abdominal: Reports: no symptoms. Genitourinary: Reports: no symptoms. Musculoskeletal: Reports: no symptoms. Skin: Reports: no symptoms. Neurological/Psychological: Reports: no symptoms. All Other Systems: Reviewed and Negative (Meg BUENO,Gamaliel King) Physical Exam Physical Exam General Appearance: well developed/nourished, mild distress Head: atraumatic, normal appearance Eyes: Bilateral: normal appearance. Ears, Nose, Throat, Mouth: hearing grossly normal Neck: normal inspection, supple, full range of motion Respiratory: normal breath sounds, chest non-tender, no respiratory distress, quiet respiration, lungs clear Cardiovascular: regular rate/rhythm Gastrointestinal: soft, ecchymosis right flank Core Measures ACS in differential dx? No CVA/TIA Diagnosis No Sepsis Present: No Sepsis Focused Exam Completed? No (Meg BUENO,Gamaliel King) Progress Differential Diagnosis: C/T/L spine injury, ext injury Plan of Care: Orders Procedure Date/time Status Regular Diet 05/07 L Active Patient Data 05/07 1157 Active OXYGEN SETUP (GEN) 05/07 1137 Active Saline Lock 05/[address] in observation 05/07 1137 Active Vital Signs 05/07 1137 Active Activity/Ambulation 05/07 1137 Active Code Status 05/07 1137 Active PT Evaluate & Treat 05/07 0705 Active CASE MANAGEMENT CONSULT 05/07 0705 Active TROPONIN LEVEL 05/07 044 Complete LIPASE 05/077 Complete HEPATIC FUNCTION PANEL 05/07 044 Complete CREATINE PHOSPHOKINASE 05/07 044 Complete BASIC METABOLIC PANEL 05/07 0447 Complete AMYLASE 05/07 446 Complete URINALYSIS 05/07 445 Active CBC WITHOUT DIFFERENTIAL 05/07 445 Complete EKG 05/07 445 Active Theraputic Activities 15 Min 05/07 UNK Complete MOBILITY GOAL STATUS 05/07 UNK Complete MOBILITY CURRENT STATUS 05/07 UNK Complete PT EVAL LOW COMPLEX 20 MIN 05/07 UNK Complete Current Medications Sig/Eliceo Start time Last Medication Dose Stop Time Status Admin Acetaminophen 1,000 MG ONCE ONE 05/07 0745 CAN (Ofirmev) 05/07 0746 Laboratory Tests 05/07/17 1222: Urine Color Pending, Urine Clarity Pending, Urine pH Pending, Ur Specific Raven Pending, Urine Protein Pending, Urine Ketones Pending, Urine Nitrite Pending, Urine Bilirubin Pending, Urine Urobilinogen Pending, Ur Leukocyte Esterase Pending, Ur Microscopic SEDIMENT EXAMINED, Urine RBC Pending, Urine Hemoglobin Pending, Urine Glucose Pending 05/07/17 0545: Anion Gap 16, Estimated GFR > 60, BUN/Creatinine Ratio 17.5, Glucose 110 H, Calcium 9.7, Total Bilirubin 1.5 H, Direct Bilirubin 0.4, AST 33, ALT 32, Alkaline Phosphatase 83, Creatine Kinase 301 H, Troponin I 0.01, Total Protein 6.5, Albumin 4.0, Amylase 55, Lipase 57 05/07/17 0454: CBC w Diff NO MAN DIFF REQ, RBC 4.14 L, MCV 88.3, MCH 29.9, MCHC 33.8, RDW 13.3 , MPV 8.5, Gran % 76.1 H, Lymphocytes % 14.2 L, Monocytes % 9.1, Eosinophils % 0.3, Basophils % 0.3, Absolute Granulocytes 6.7 H, Absolute Lymphocytes 1.2, Absolute Monocytes 0.8 H, Absolute Eosinophils 0, Absolute Basophils 0 05/07/17 0446: Sodium Cancelled, Potassium Cancelled, Chloride Cancelled, Carbon Dioxide Cancelled, Anion Gap Cancelled, BUN Cancelled, Creatinine Cancelled, BUN/ Creatinine Ratio Cancelled, Glucose Cancelled, Calcium Cancelled, Total Bilirubin Cancelled, Direct Bilirubin Cancelled, AST Cancelled, ALT Cancelled, Alkaline Phosphatase Cancelled, Troponin I Cancelled, Total Protein Cancelled, Albumin Cancelled, Amylase Cancelled, Lipase Cancelled Diagnostic Imaging: Viewed by Me: Radiology Read, CT Scan. Discussed w/RAD: Radiology Read, CT Scan. Radiology Impression: PATIENT: MARTINA LEONARDO PRESENT AGE: 76 PATIENT ACCOUNT NO: [id number] : 38 LOCATION: [facility] ORDERING PHYSICIAN: Gamaliel Weaver MD SERVICE DATE: 05/07/17 EXAM TYPE: RAD - XRY-KNEE COMPLETE LEFT; XRY-KNEE COMPLETE RIGHT EXAMINATION: BILATERAL KNEE X-RAY CLINICAL INFORMATION: Pain post fall COMPARISON: None TECHNIQUE: 3 views each knee FINDINGS: Right knee: Bone alignment is normal. No fracture or dislocation is seen. Joint spaces are normal. There is no joint effusion. There are small patellar osteophytes at the quadriceps tendon insertion and patellar tendon origin. There is evidence of atherosclerotic disease. Left knee: Bone alignment is normal. No fracture or dislocation is seen. There is medial femoral tibial joint space narrowing. Joint spaces are otherwise normal. There is no joint effusion. There is a patellar osteophyte at the quadriceps tendon insertion. There is evidence of atherosclerotic disease. IMPRESSION: Mild degenerative changes. No fracture or dislocation seen. Atherosclerotic disease. DICTATED BY: Gayle Elaine MD DATE/TIME DICTATED:713 PIER WORKER:TOM DATE/TIME TRANSCRIBED:05/07/17713 CONFIDENTIAL, DO NOT COPY WITHOUT APPROPRIATE AUTHORIZATION. <Electronically signed in Other Vendor System> SIGNED BY: Gayle Elaine MD 05/07/17718 , PATIENT: MARTINA LEONARDO PRESENT AGE: 76 PATIENT ACCOUNT NO: [id number] : 38 LOCATION: [facility] ORDERING PHYSICIAN: Gamaliel Weaver MD SERVICE DATE: 05/07/17 EXAM TYPE: CAT - CT CERV SPINE WO IV CONTRAST; CT HEAD WO IV CONTRAST EXAMINATION: NONCONTRAST HEAD CT NONCONTRAST CERVICAL SPINE CT INDICATION INFORMATION: Fall COMPARISON: To TECHNIQUE: Separate noncontrast CT examinations of the head and cervical spine were performed. Coronal head CT images and coronal and sagittal cervical spine images were created at the technologist workstation. DLP: 1085.51 mGy-cm FINDINGS: Head: There is no evidence of acute intracranial hemorrhage or territorial infarction. No abnormal mass-effect or midline shift is seen. Hwang to white matter differentiation is well preserved. No extra-axial fluid collections are identified. The ventricles are normal in size. There is moderate periventricular white matter hypoattenuation consistent with chronic small vessel ischemic disease. Mild volume loss is noted. The osseous structures and soft tissues are normal. The mastoid air cells and visualized portions of the paranasal sinuses are well-aerated. Cervical spine: There is anatomic alignment of the vertebral bodies and posterior elements. There is degenerative change at the atlantodens articulation. Vertebral body heights are maintained. There is disc space narrowing in the lower cervical spine. Prominent endplate osteophytes are present. There is bilateral facet arthropathy. No evidence of acute fracture. No prevertebral soft tissue swelling. Visualized portions of the lung apices are unremarkable. The thyroid gland appears diminutive. IMPRESSION: 1. Head: No acute intracranial findings. Chronic small vessel ischemic disease and volume loss. 2. Cervical spine: No acute findings identified. Moderate to severe degenerative changes. DICTATED BY: Brayan Iniguez MD DATE/TIME DICTATED: 05/07/17652 PIER WORKER:TOM DATE/TIME TRANSCRIBED:05/07/17652 CONFIDENTIAL, DO NOT COPY WITHOUT APPROPRIATE AUTHORIZATION. <Electronically signed in Other Vendor System> SIGNED BY: Brayan Iniguez MD 05/07/17 0704, PATIENT: MARTINA LEONARDO PRESENT AGE: 76 PATIENT ACCOUNT NO: [id number] : 38 LOCATION: [facility] ORDERING PHYSICIAN: Gamaliel Weaver MD SERVICE DATE: 05/07/17526 EXAM TYPE: CAT - CT ABD & PELVIS W/ O IV CONTRAS; CT CHEST WO IV CONTRAST EXAM: NONCONTRAST CT OF THE CHEST; NONCONTRAST CT OF THE ABDOMEN AND PELVIS INDICATION: Fall, trauma COMPARISON: None TECHNIQUE: No IV contrast was utilized. Multidetector helical imaging was performed through the chest, abdomen, and pelvis. Coronal and sagittal reformatted images were created at the technologist workstation. DLP: 1509.68 mGy-cm FINDINGS: Chest: There is subsegmental atelectasis at the left lung base. No additional consolidation bilaterally. No pneumothorax or pleural effusions. The visualized thyroid gland is unremarkable. There are subcentimeter mediastinal lymph nodes within the range of normal variation. Cardiac size is within normal limits; no pericardial effusion. There is atherosclerotic calcification along the aorta. No axillary lymphadenopathy is present. Abdomen/ Pelvis: The liver is homogeneous in attenuation without intrahepatic biliary ductal dilatation. There is mild layering hyperdensity of the gallbladder consistent with cholelithiasis. The unenhanced spleen, pancreas, and adrenal glands are within normal limits. There are several renal cysts bilaterally, largest off the lower poles measuring up to approximately 8.8 cm on the right and 8.0 cm on the left in the axial plane. No hydronephrosis bilaterally. There are tiny calculi in the renal cecilia bilaterally which may be vascular. The urinary bladder is unremarkable. The uterus and adnexa are unremarkable. No evidence of bowel obstruction or pericolonic inflammatory change. There is sigmoid colon diverticulosis. The appendix is unremarkable. No free fluid or free air is present. There is atherosclerotic calcification along the aorta and iliac arteries. No retroperitoneal or pelvic lymphadenopathy is seen. There is an acute appearing superior endplate fracture of L1 anteriorly, with approximately 25% loss of height. Alignment of the vertebral bodies and posterior elements throughout the spine appears maintained. Multilevel degenerative changes are present including osteophytes in the thoracic spine and facet arthropathy in the lumbar spine. IMPRESSION: 1. Acute superior endplate fracture of L1 anteriorly, with approximately 25% loss of height. 2. No additional acute traumatic findings identified in the chest, abdomen, or pelvis. 3. Cholelithiasis. 4. Bilateral renal cysts. DICTATED BY: Brayan Iniguez MD DATE/TIME DICTATED:05/07/17700 PIER WORKER:TOM DATE/TIME TRANSCRIBED:05/07/17700 CONFIDENTIAL, DO NOT COPY WITHOUT APPROPRIATE AUTHORIZATION. <Electronically signed in Other Vendor System> SIGNED BY: Brayan Iniguez MD 05/07/17715 Initial ED EKG: NSR, no acute changes. Hand-Off Endorsed To: Tad Carranza MD Endorsed Time: 0700 Pending: CT, consult, labs, Xray (Gamaliel Weaver MD) Departure Departure Disposition: STILL A PATIENT Condition: Stable Referrals: Taye Najera MD (PCP/Family) Departure Forms: Customer Survey General Discharge Information Comments pt with endplate fx... will have PT and case management eval for possible PT/ short term rehab placement. (Gamaliel Weaver MD) Departure Time of Disposition: 1137 Clinical Impression Primary Impression: Vertebral compression fracture Secondary Impressions: Fall, Multifactorial gait disorder Admission Note Spoke With: Gideon BUENO,Garry Dias Documentation of Exam: Documentation of any treatments & extenuating circumstances including Concerns Regarding Discharge (functional status, medication knowledge or non-compliance, living conditions, etc.) that warrant an admission rather than observation: Analgesia physical therapy medication adjustment ensure safety continuing care discharge planning. (Tad Carranza MD)
[2017-05-07 05:59] LABS: ABSOLUTE BASOPHIL COUNT 0 /CUMM (0.0-0.2); ABSOLUTE EOSINOPHIL COUNT 0 /CUMM (0.0-0.7); ABSOLUTE GRANULOCYTE CT 6.7 /CUMM (1.4-6.5); ABSOLUTE LYMPH COUNT 1.2 /CUMM (1.2-3.4); ABSOLUTE MONOCYTE COUNT 0.8 /CUMM (0.10-0.60); BASOPHIL % 0.3 % (0.0-2.0); EOSINOPHIL % 0.3 % (0-5); GRANULOCYTE % 76.1 % (42.2-75.2); HEMATOCRIT 36.6 % (37-47); MEAN CORPUSCULAR HGB 29.9 PG (27.0-31.0); MEAN CORPUSCULAR HGB CONC 33.8 G/DL (33.0-37.0); MEAN CORPUSCULAR VOLUME 88.3 FL (81.0-99.0); MEAN PLATELET VOLUME 8.5 FL (7.4-10.4); PLATELET COUNT 178 /CUMM (130-400); RBC DISTRIBUTION WIDTH 13.3 % (11.5-14.5); RED BLOOD CELL CT 4.14 /CUMM (4.20-5.40); WHITE BLOOD CELL COUNT 8.8 /CUMM (4.8-10.8)
--- NOTE | 2017-05-07 07:04 | CT SCAN REPORT ---
EXAMINATION: NONCONTRAST HEAD CT NONCONTRAST CERVICAL SPINE CT INDICATION INFORMATION: Fall COMPARISON: To 05/31/2016 TECHNIQUE: Separate noncontrast CT examinations of the head and cervical spine were performed. Coronal head CT images and coronal and sagittal cervical spine images were created at the technologist workstation. DLP: 1085.51 mGy-cm FINDINGS: Head: There is no evidence of acute intracranial hemorrhage or territorial infarction. No abnormal mass-effect or midline shift is seen. Hwang to white matter differentiation is well preserved. No extra-axial fluid collections are identified. The ventricles are normal in size. There is moderate periventricular white matter hypoattenuation consistent with chronic small vessel ischemic disease. Mild volume loss is noted. The osseous structures and soft tissues are normal. The mastoid air cells and visualized portions of the paranasal sinuses are well-aerated. Cervical spine: There is anatomic alignment of the vertebral bodies and posterior elements. There is degenerative change at the atlantodens articulation. Vertebral body heights are maintained. There is disc space narrowing in the lower cervical spine. Prominent endplate osteophytes are present. There is bilateral facet arthropathy. No evidence of acute fracture. No prevertebral soft tissue swelling. Visualized portions of the lung apices are unremarkable. The thyroid gland appears diminutive. IMPRESSION: 1. Head: No acute intracranial findings. Chronic small vessel ischemic disease and volume loss. 2. Cervical spine: No acute findings identified. Moderate to severe degenerative changes.
--- NOTE | 2017-05-07 07:16 | CT SCAN REPORT ---
EXAM: NONCONTRAST CT OF THE CHEST; NONCONTRAST CT OF THE ABDOMEN AND PELVIS INDICATION: Fall, trauma COMPARISON: None TECHNIQUE: No IV contrast was utilized. Multidetector helical imaging was performed through the chest, abdomen, and pelvis. Coronal and sagittal reformatted images were created at the technologist workstation. DLP: 1509.68 mGy-cm FINDINGS: Chest: There is subsegmental atelectasis at the left lung base. No additional consolidation bilaterally. No pneumothorax or pleural effusions. The visualized thyroid gland is unremarkable. There are subcentimeter mediastinal lymph nodes within the range of normal variation. Cardiac size is within normal limits; no pericardial effusion. There is atherosclerotic calcification along the aorta. No axillary lymphadenopathy is present. Abdomen/Pelvis: The liver is homogeneous in attenuation without intrahepatic biliary ductal dilatation. There is mild layering hyperdensity of the gallbladder consistent with cholelithiasis. The unenhanced spleen, pancreas, and adrenal glands are within normal limits. There are several renal cysts bilaterally, largest off the lower poles measuring up to approximately 8.8 cm on the right and 8.0 cm on the left in the axial plane. No hydronephrosis bilaterally. There are tiny calculi in the renal cecilia bilaterally which may be vascular. The urinary bladder is unremarkable. The uterus and adnexa are unremarkable. No evidence of bowel obstruction or pericolonic inflammatory change. There is sigmoid colon diverticulosis. The appendix is unremarkable. No free fluid or free air is present. There is atherosclerotic calcification along the aorta and iliac arteries. No retroperitoneal or pelvic lymphadenopathy is seen. There is an acute appearing superior endplate fracture of L1 anteriorly, with approximately 25% loss of height. Alignment of the vertebral bodies and posterior elements throughout the spine appears maintained. Multilevel degenerative changes are present including osteophytes in the thoracic spine and facet arthropathy in the lumbar spine. IMPRESSION: 1. Acute superior endplate fracture of L1 anteriorly, with approximately 25% loss of height. 2. No additional acute traumatic findings identified in the chest, abdomen, or pelvis. 3. Cholelithiasis. 4. Bilateral renal cysts.
--- NOTE | 2017-05-07 07:19 | RADIOLOGY REPORT ---
EXAMINATION: BILATERAL KNEE X-RAY CLINICAL INFORMATION: Pain post fall COMPARISON: None TECHNIQUE: 3 views each knee FINDINGS: Right knee: Bone alignment is normal. No fracture or dislocation is seen. Joint spaces are normal. There is no joint effusion. There are small patellar osteophytes at the quadriceps tendon insertion and patellar tendon origin. There is evidence of atherosclerotic disease. Left knee: Bone alignment is normal. No fracture or dislocation is seen. There is medial femoral tibial joint space narrowing. Joint spaces are otherwise normal. There is no joint effusion. There is a patellar osteophyte at the quadriceps tendon insertion. There is evidence of atherosclerotic disease. IMPRESSION: Mild degenerative changes. No fracture or dislocation seen. Atherosclerotic disease.
[2017-05-07] MEDS ORDERED: CYCLOBENZAPRINE10 M1 PO (12:38)
[2017-05-07] MEDS ORDERED: BREO ELLIPTA 21 EACH INH (12:39)
[2017-05-07] MEDS ORDERED: LEVOTHYROXINE88 MCG PO (12:39)
[2017-05-07] MEDS ORDERED: MELOXICAM15 M1 PO (12:39)
--- NOTE | 2017-05-07 12:58 | History & Physical ---
Danielle Antonio 05/07/17 1257: General Information and HPI MD Statement: I have seen and personally examined MARTINA LEONARDO and documented this H&P. The patient is a 76 year old F who presented with a patient stated chief complaint of [fall/vertebral fracture]. Source of Information: patient, family Exam Limitations: no limitations History of Present Illness: Patient is 76 year old female with PMh of [place] s/p 3 stents, hyperlipidemia, hypothyroidism came with [facility] chief complain of repeated falls. Pamela, patients daughter was in the room and reported that patient has been falling repeatedly since past 6 months. Patient lives alone at home. She feel yesterday at 8 am and called the daughter at 4 pm, the daughter adds that she remained on the floor all this time. Patient uses walkera t home and has been falling inspite of using walker. She fell again this morning around 3.15 ama nd activated her life support. Patient denies any loss of consciouness, headache, dizziness etc. Patient denies any pain in prerna body, currentc hest pain, headache, abdominal discomfort or burning micturation. Patient's daughter reports that she has not been eating well. Allergies/Medications Allergies: Coded Allergies: NO KNOWN ALLERGIES (03/19/11) Home Med list Aspirin (Ecotrin*) 81 MG TABLET.DR 1 TAB PO QPM HEART HEALTH (Reported) Atorvastatin Calcium 40 MG TABLET 1 TAB PO DAILY CHOLESTEROL (Reported) Clopidogrel Bisulfate (Clopidogrel) 75 MG TABLET 1 TAB PO DAILY BLOOD THINNER (Reported) Cyclobenzaprine HCl 10 MG TABLET 1 TAB PO TID PRN MUSCLE SPASMS (Reported) Escitalopram Oxalate 10 MG TABLET 1 TAB PO DAILY MENTAL HEALTH (Reported) Ezetimibe (Zetia) 10 MG TABLET 1 TAB PO DAILY CHOLESTEROL (Reported) Fluticasone/Vilanterol (Breo Ellipta 200-25 Mcg INH) 200 MCG-25 MCG/DOSE BLST.W.DEV 1 PUFF INH DAILY ASTHMA (Reported) Levocetirizine Dihydrochloride 5 MG TABLET 1 TAB PO QPM ASTHMA (Reported) Levothyroxine Sodium 88 MCG TABLET 1 TAB PO DAILY THYROID (Reported) Meloxicam 15 MG TABLET 1 TAB PO DAILY PAIN/INFLAMMATION (Reported) Metoprolol Succinate 50 MG TAB.ER.24H 1 TAB PO DAILY HEART (Reported) Mometasone Furoate (Nasonex) 50 MCG SPRAY.PUMP 2 SPRAY NASB DAILY NASAL PROBLEMS (Reported) Montelukast Sodium (Singulair) 10 MG TABLET 1 TAB PO DAILY ASTHMA (Reported) Omeprazole 20 MG CAPSULE.DR 1 CAP PO DAILY GERD (Reported) Past History Travel History Traveled to [place] past 21 day No Medical History Neurological: NONE EENT: NONE Cardiovascular: hyperlipidemia, myocardial infarction, STENTS X3 Respiratory: asthma Gastrointestinal: GERD Hepatic: NONE Renal: NONE Musculoskeletal: osteoarthritis, LUMBAR [place]AN[place] CHRONIC BACK PAIN Psychiatric: NONE Endocrine: hypothyroidism Blood Disorders: NONE Cancer(s): NONE NEUROSURGERY RESEARCH DIRECTOR/Reproductive: NONE History of MRSA: No History of VRE: No History of CDIFF: No Surgical History Surgical History: Lumbar laminectomy. Left arthroscopic rotator cuff repair, Left knee arthroscopic repair Past Family/Social History Family History Relations & Conditions if any MOTHER FH: diabetes mellitus FH: esophageal cancer FH: heart attack, Onset: 60+. FATHER FH: prostate cancer Psychosocial History Who Do You Live With? self Services at Home: None, recently going to physical therapy Primary Language: Cameroonian Functional Ability ADLs Independent: dressing, eating, toileting, bathing. Ambulation: cane Review of Systems Review of Systems Constitutional: Reports: see HPI. Exam & Diagnostic Data Last 24 Hrs of Vital Signs/I&O Vital Signs Date Time Temp Pulse Resp B/P B/P Pulse O2 O2 Flow FiO2 Mean Ox Delivery Rate 05/07 1004 98.7 78 18 136/65 96 Room Air 05/07 0725 98.5 91 18 168/72 97 Room Air 05/07 0407 98.5 75 20 174/75 98 Room Air Intake & Output 05/07 1600 05/07 0800 05/07 0000 Intake Total 0 Output Total Balance 0 Intake, Oral 0 Patient 81.647 kg Weight Physical Exam General Appearance Alert, Oriented X3 Skin No Rashes, No Breakdown Skin Temp/Moisture Exam: Warm/Dry HEENT Atraumatic, PERRLA Neck Supple, tenderness on lumbar region Lymphatic Axillary nl, Cervical nl Cardiovascular Normal S1, Normal S2 Lungs Clear to Auscultation, Normal Air Movement Abdomen Normal Bowel Sounds, Soft, No Tenderness Neurological Normal Speech, Normal Tone, Sensation Intact Extremities No Cyanosis, No Edema Last 24 Hrs of Labs/Ronald: Laboratory Tests 05/07/17 1222: Urine Color YEL, Urine Clarity HAZY H, Urine pH 6.0, Ur Specific [place] >= 1.030, Urine Protein 100 H, Urine Ketones 15 H, Urine Nitrite NEG, Urine Bilirubin NEG@ICTO, Urine Urobilinogen 1.0, Ur Leukocyte Esterase LARGE H, Ur Microscopic SEDIMENT EXAMINED, Urine RBC 1-3, Urine WBC 1-3 H, Urine Bacteria MANY H, Urine Hemoglobin MOD H, Urine Glucose NEG 05/07/17 0545: Anion Gap 16, Estimated GFR > 60, BUN/Creatinine Ratio 17.5, Glucose 110 H, Calcium 9.7, Total Bilirubin 1.5 H, Direct Bilirubin 0.4, AST 33, ALT 32, Alkaline Phosphatase 83, Creatine Kinase 301 H, Troponin I 0.01, Total Protein 6.5, Albumin 4.0, Amylase 55, Lipase 57 05/07/17 0454: CBC w Diff NO MAN DIFF REQ, RBC 4.14 L, MCV 88.3, MCH 29.9, MCHC 33.8, RDW 13.3 , MPV 8.5, Gran % 76.1 H, Lymphocytes % 14.2 L, Monocytes % 9.1, Eosinophils % 0.3, Basophils % 0.3, Absolute Granulocytes 6.7 H, Absolute Lymphocytes 1.2, Absolute Monocytes 0.8 H, Absolute Eosinophils 0, Absolute Basophils 0 05/07/17 0446: Sodium Cancelled, Potassium Cancelled, Chloride Cancelled, Carbon Dioxide Cancelled, Anion Gap Cancelled, BUN Cancelled, Creatinine Cancelled, BUN/ Creatinine Ratio Cancelled, Glucose Cancelled, Calcium Cancelled, Total Bilirubin Cancelled, Direct Bilirubin Cancelled, AST Cancelled, ALT Cancelled, Alkaline Phosphatase Cancelled, Troponin I Cancelled, Total Protein Cancelled, Albumin Cancelled, Amylase Cancelled, Lipase Cancelled Assessment/Plan Assessment: Patient is 76 year old female with PMh of [place] s/p 3 stents, hyperlipidemia, hypothyroidism came with [facility] chief complain of repeated falls. Pamela, patients daughter was in the room and reported that patient has been falling repeatedly since past 6 months. Patient lives alone at home. She feel yesterday at 8 am and called the daughter at 4 pm, the daughter adds that she remained on the floor all this time. Patient uses walkera t home and has been falling inspite of using walker. She fell again this morning around 3.15 ama nd activated her life support. Patient denies any loss of consciouness, headache, dizziness etc. Patient denies any pain in prerna body, currentc hest pain, headache, abdominal discomfort or burning micturation. Knee x ray Mild degenerative changes. No fracture or dislocation seen. Atherosclerotic disease. Head CT 1. Head: No acute intracranial findings. Chronic small vessel ischemic disease and volume loss. 2. Cervical spine: No acute findings identified. Moderate to severe degenerative changes. Chest CT/Abdomen/pelvis CT IMPRESSION: 1. Acute superior endplate fracture of L1 anteriorly, with approximately 25% loss of height. 2. No additional acute traumatic findings identified in the chest, abdomen, or pelvis. 3. Cholelithiasis. 4. Bilateral renal cysts. Assessment and plan Will admit the patient to general medicine floor for conservative management of vertebral fracture PT evaluation in am WIll continue all her home meds including levothyroxine, monteleukast, omeprazole, metoprolol, escitalopram, plavix Urine is Hazy with large leukocyte esterase, patient however does not complain of any burning micturation. Dvt ppx lovenox Patient is DNR/DNI As Ranked By This Provider Problem List: 1. Vertebral compression fracture Core Measures/Misc (12/26) Acute Coronary Syndrome ACS Diagnosis: No Congestive Heart Failure Congestive Heart Failure Diagnosis No Cerebrovascular Accident CVA/TIA Diagnosis: No VTE (View Protocol) VTE Risk Factors Age>40 No Mechanical VTE Prophylaxis d/t N/A MechProphylax Ordered No VTE Pharm Prophylaxis d/t NA PharmProphylax ordered Sepsis (View protocol) Sepsis Present: No Garry Meneses MD 05/07/17 5298: Attending MD Review Statement Attending Statement Attending MD Statement: examined this patient, discuss w/resident/PA/NOVELTY TWISTER OPERATOR, agreed w/resident/PA/NOVELTY TWISTER OPERATOR, reviewed EMR data (avail), reviewed images, amended to note Attending Assessment/Plan: Problems: -History of recurrent and frequent falls -Possible new fracture of L1 -Coronary artery disease -Dyslipidemia -Hypothyroidism -Asthma -GERD Plan: -Observation on general medicine -Physical therapy consultation -Short-term rehabilitation bed search -Appropriate analgesia -Continue maintenance medications
[2017-05-07 15:32] VITALS: BP 140/70
[2017-05-07 23:08] VITALS: BP 136/72
--- NOTE | 2017-05-08 07:38 | PN- Housestaff ---
[facility] 0738: Subjective Follow-up For: Vertebral fracture Mechanical fall Subjective: No over night events. remained afibrile. seen and examined this morning. Patient denied any chest pain, short of breath, nausea, vomiting, chills, fever, abdominal pain dysuria. She reported having back pain after the fall 12/19. Review of Systems Constitutional: Reports: no symptoms. EENTM: Reports: no symptoms. Cardiovascular: Reports: no symptoms. Respiratory: Reports: no symptoms. Gastrointestinal: Reports: no symptoms. Genitourinary: Reports: no symptoms. Musculoskeletal: Reports: back pain. Neurological/Psychological: Reports: no symptoms. Objective Last 24 Hrs of Vital Signs/I&O Vital Signs Date Time Temp Pulse Resp B/P B/P Pulse O2 O2 Flow FiO2 Mean Ox Delivery Rate 05/07 2308 97.9 68 18 136/72 95 Room Air 05/07 1532 97.8 70 20 140/70 94 05/07 1448 Room Air 05/07 1410 78 136/65 05/07 1004 98.7 78 18 136/65 96 Room Air Intake & Output 05/08 1600 05/08 0800 05/08 0000 Intake Total 180 400 Output Total 300 250 Balance -120 150 Intake, Oral 180 400 Number 1 Bowel Movements Output, Urine 300 250 Patient 180 lb Weight Physical Exam General Appearance: Alert, Oriented X3, Cooperative Skin Temp/Moisture Exam: Warm/Dry Sepsis Skin Exam (color): Normal for Ethnicity HEENT: Atraumatic, PERRLA, EOMI Neck: Supple Cardiovascular: Normal S1, Normal S2 Lungs: Clear to Auscultation Abdomen: Soft, No Tenderness Neurological: Normal Speech, Strength at 5/5 X4 Ext, Normal Tone Extremities: No Edema Assessment/Plan Assessment: 76 year old female with PMh of [place] s/p 3 stents, hyperlipidemia, hypothyroidism came with [facility] chief complain of repeated falls. Pamela, patients daughter was in the room and reported that patient has been falling repeatedly since past 6 months. Patient lives alone at home. She feel yesterday at 8 am and called the daughter at 4 pm, the daughter adds that she remained on the floor all this time. We will keep the patient under observation on general medicine floor for conservative management of vertebral fracture. L1 vertebral fracture after the fall: -Acute superior endplate fracture of L1 anteriorly, with approximately 25% loss of height. -Conservative management of vertebral fracture. -Pain management -PT evaluation -Patient needs placement History of hypothyroidism and hyperlipidemia: -Continue levothyroxine. -We will continue Lipitor History of CAD status post stent placement: We will continue her home medications including Plavix, aspirin and metoprolol. History of depression: We will continue escitalopram. H/O GERD: -continue omeprazole DVT prophylaxis: Mechanical CODE STATUS: DNR/intubation Problem List: 1. Fall 2. Vertebral compression fracture Pain Ratin Pain Location: BACK Pain Goal: Pain 4 or less Pain Plan: pain pathway Tomorrow's Labs & Rationales: cbc/bep Garry Meneses MD 05/08/17 1423: Attending MD Review Statement Attending Statement Attending MD Statement: examined this patient, agreed w/resident/PA/GROUNDMAN/LINEMAN, reviewed EMR data (avail), discussed with nursing, amended to note Attending Assessment/Plan: Mrs. Francis was interviewed and examined. Her EMR was reviewed. She does note that her present analgesic regimen is inadequate but otherwise has no complaints. She is clinically stable. I would suggest we follow up with an Accu-Chek for her elevated glucose upon admission. In addition I would range to a more potent analgesic regimen to improve her comfort.
[2017-05-08 14:06] VITALS: BP 120/70
[2017-05-08 22:02] VITALS: BP 140/80
[2017-05-09 07:17] VITALS: BP 138/68
--- NOTE | 2017-05-09 07:31 | PN- Housestaff ---
Subjective Follow-up For: Vertebral fracture Mechanical fall Subjective: No overnight events. Patient remained afebrile overnight. Seen and examined this morning. Patient denied any chest pain, short of breath, nausea, vomiting, chills, fever, abdominal pain dysuria. Patient is being discharged to short- term rehabilitation the bed is available today. I spoke to her daughter this morning she was concerned about UTI and patient's hallucination. I addressed her concerns and also spoke to Dr. Najera who is the primary care physician. He told me that patient having dementia that's why she has forgetfulness and sometimes sundowning effect. And there is no need to treat asymptomatic UTI. Review of Systems Constitutional: Reports: see HPI. Objective Last 24 Hrs of Vital Signs/I&O Vital Signs Date Time Temp Pulse Resp B/P B/P Pulse O2 O2 Flow FiO2 Mean Ox Delivery Rate 05/09 1008 Room Air 05/09 1005 97.5 74 20 138/68 05/09 0717 97.5 74 20 138/68 94 Room Air 05/09 0000 94 Room Air 05/08 2202 98.3 63 20 140/80 94 05/08 1406 98.2 70 20 120/70 96 Intake & Output 05/09 1600 05/09 0800 05/09 0000 Intake Total 150 400 Output Total 651 Balance 150 -251 Intake, IV 0 Intake, Oral 150 400 Number 0 1 Bowel Movements Output, Stool 1 Output, Urine 650 Patient 180 lb Weight Physical Exam General Appearance: Alert, Oriented X3, Cooperative Skin Temp/Moisture Exam: Warm/Dry Sepsis Skin Exam (color): Normal for Ethnicity HEENT: Atraumatic, PERRLA, EOMI Neck: Supple Cardiovascular: Normal S1, Normal S2 Lungs: Clear to Auscultation Abdomen: Soft, No Tenderness Neurological: Normal Speech, Normal Tone Extremities: No Edema Assessment/Plan Assessment: 76 year old female with PMh of [place] s/p 3 stents, hyperlipidemia, hypothyroidism came with [facility] chief complain of repeated falls. Pamela, patients daughter was in the room and reported that patient has been falling repeatedly since past 6 months. Patient lives alone at home. She feel yesterday at 8 am and called the daughter at 4 pm, the daughter adds that she remained on the floor all this time. We will keep the patient under observation on general medicine floor for conservative management of vertebral fracture. L1 vertebral fracture after the fall: -Acute superior endplate fracture of L1 anteriorly, with approximately 25% loss of height. -Conservative management of vertebral fracture. -Pain management -PT evaluation -Patient needs placement History of hypothyroidism and hyperlipidemia: -Continue levothyroxine. -We will continue Lipitor History of CAD status post stent placement: We will continue her home medications including Plavix, aspirin and metoprolol. History of depression: We will continue escitalopram. H/O GERD: -continue omeprazole DVT prophylaxis: Mechanical CODE STATUS: DNR/intubation Problem List: 1. Vertebral compression fracture 2. Weakness Pain Ratin Pain Location: none Pain Goal: Remain pain free Pain Plan: pain pathway Tomorrow's Labs & Rationales: none
[2017-05-09 09:52] LABS: ABSOLUTE BASOPHIL COUNT 0 /CUMM (0.0-0.2); ABSOLUTE EOSINOPHIL COUNT 0.4 /CUMM (0.0-0.7); ABSOLUTE GRANULOCYTE CT 3.5 /CUMM (1.4-6.5); ABSOLUTE MONOCYTE COUNT 0.6 /CUMM (0.10-0.60); BASOPHIL % 0.4 % (0.0-2.0); EOSINOPHIL % 5.8 % (0-5); GRANULOCYTE % 54.2 % (42.2-75.2); HEMATOCRIT 39.5 % (37-47); MEAN CORPUSCULAR HGB 29.5 PG (27.0-31.0); MEAN CORPUSCULAR HGB CONC 33.5 G/DL (33.0-37.0); MEAN CORPUSCULAR VOLUME 88.1 FL (81.0-99.0); MEAN PLATELET VOLUME 8.7 FL (7.4-10.4); PLATELET COUNT 208 /CUMM (130-400); RBC DISTRIBUTION WIDTH 13.3 % (11.5-14.5); RED BLOOD CELL CT 4.49 /CUMM (4.20-5.40); WHITE BLOOD CELL COUNT 6.5 /CUMM (4.8-10.8)
--- NOTE | 2017-05-09 10:17 | Patient Discharge Instructions ---
Discharge Instructions General Discharge Information You were seen/treated for: Mechanical fall Nondisplaced vertebral fracture Watch for these problems: Increase in pain, nausea, vomiting, chills, fever, burning urination, dizziness and altered mental status. If you experience any of these symptoms please come to ED or call your primary care physician Special Instructions: Follow your primary care physician in one week. Diet Recommended Diet: Regular Activity Activity Self Limited: Yes Acute Coronary Syndrome Inclusion Criteria At DC or during hospital stay patient has or had the following: ACS DIAGNOSIS No Discharge Core Measures Meds if any: Prescribed or Continued at Discharge Meds if any: NOT Prescribed or Continued at Discharge Congestive Heart Failure Inclusion Criteria At DC or during hospital stay patient has or had the following: CHF DIAGNOSIS No Discharge Core Measures Meds if any: Prescribed or Continued at Discharge Meds if any: NOT Prescribed or Continued at Discharge Cerebrovascular accident Inclusion Criteria At DC or during hospital stay patient has or had the following: CVA/TIA Diagnosis No Discharge Core Measures Meds if any: Prescribed or Continued at Discharge Meds if any: NOT Prescribed or Continued at Discharge Venous thromboembolism Inclusion Criteria VTE Diagnosis No VTE Type NONE VTE Confirmed by (Test) NONE Discharge Core Measures - Per Current guidelines, there needs to be overlap - treatment for the first 5 days of Warfarin therapy. - If discharged on Warfarin prior to 5 days of - overlap therapy, the patient will need to be - assessed for post discharge needs including - *Post discharge parental anticoagulation - *Warfarin and/or parental anticoagulation education - *Follow up date to check INR post discharge At least 5 days overlap therapy as Inpatient No Meds if any: Prescribed or Continued at Discharge Note: Overlap Therapy is Warfarin and Anticoagulant Meds if any: NOT Prescribed or Continued at Discharge
--- NOTE | 2017-05-09 10:42 | PN- Att Addend ---
Attending Addendum Attending Brief Note Events over the weekend noted. Patient sitting in the chair still has some pain she is alert and oriented . Vital Signs are stable, no major changes on physical will have PT evaluation and probably will go for short-term rehabilitation as soon as bed and insurance approval Intake & Output 05/09 1600 05/09 0400 05/08 1600 05/08 0400 05/07 1600 05/07 0400 Intake Total 150 400 780 400 0 Output Total 651 300 250 Balance 150 -251 480 150 0 Intake, IV 0 Intake, Oral 150 400 780 400 0 Number 0 1 1 Bowel Movements Output, Stool 1 Output, Urine 650 300 250 Patient 180 lb 180 lb 180 lb Weight Current Medications Sig/[place]o Start time Last Medication Dose Route Stop Time Status Admin Acetaminophen 650 MG Q6P PRN 05/07 1330 AC PO Aspirin Buffered 81 MG QPM 05/07 2200 AC 05/08 PO 2056 Atorvastatin Calcium 40 MG DAILY 05/07 1321 AC 05/09 PO 1006 Ceftriaxone Sodium 1,000 MG DAILY@1800 05/08 1800 AC 05/08 IV 1856 Clopidogrel Bisulfate 75 MG DAILY 05/07 1321 AC 05/09 PO 1006 Cyclobenzaprine HCl 10 MG TID PRN 05/07 1330 AC PO Escitalopram Oxalate 10 MG DAILY 05/07 1322 AC 05/09 PO 1006 Ezetimibe 10 MG DAILY 05/07 1322 AC 05/09 PO 1005 Ketorolac 15 MG Q6 PRN 05/08 1730 AC 05/09 Tromethamine IV 0100 Levothyroxine Sodium 0.088 MG DAILY AC 05/09 0700 AC 05/09 PO 0625 Levothyroxine Sodium 0.088 MG DAILY 05/07 1324 DC 05/08 PO 1007 Metoprolol Succinate 50 MG DAILY 05/07 1322 AC 05/09 PO 1005 Montelukast Sodium 10 MG DAILY 05/07 1323 AC 05/09 PO 1006 Omeprazole 20 MG DAILY AC 05/09 0700 AC 05/09 PO 0625 Omeprazole 20 MG DAILY 05/07 1323 DC 05/08 PO 1007 Laboratory Tests 05/09/17 0850: Anion Gap 15, Estimated GFR > 60, BUN/Creatinine Ratio 20.0, CBC w Diff Pending, WBC Pending, RBC Pending, Hgb Pending, Hct Pending, MCV Pending, MCH Pending, MCHC Pending, RDW Pending, Plt Count Pending, MPV Pending 05/07/17 1222: Urine Color YEL, Urine Clarity HAZY H, Urine pH 6.0, Ur Specific [place] >= 1.030, Urine Protein 100 H, Urine Ketones 15 H, Urine Nitrite NEG, Urine Bilirubin NEG@ICTO, Urine Urobilinogen 1.0, Ur Leukocyte Esterase LARGE H, Ur Microscopic SEDIMENT EXAMINED, Urine RBC 1-3, Urine WBC 1-3 H, Urine Bacteria MANY H, Urine Hemoglobin MOD H, Urine Glucose NEG 05/07/17 0545: Anion Gap 16, Estimated GFR > 60, BUN/Creatinine Ratio 17.5, Glucose 110 H, Calcium 9.7, Total Bilirubin 1.5 H, Direct Bilirubin 0.4, AST 33, ALT 32, Alkaline Phosphatase 83, Creatine Kinase 301 H, Troponin I 0.01, Total Protein 6.5, Albumin 4.0, Amylase 55, Lipase 57 05/07/17 0454: CBC w Diff NO MAN DIFF REQ, RBC 4.14 L, MCV 88.3, MCH 29.9, MCHC 33.8, RDW 13.3 , MPV 8.5, Gran % 76.1 H, Lymphocytes % 14.2 L, Monocytes % 9.1, Eosinophils % 0.3, Basophils % 0.3, Absolute Granulocytes 6.7 H, Absolute Lymphocytes 1.2, Absolute Monocytes 0.8 H, Absolute Eosinophils 0, Absolute Basophils 0 05/07/17 2716: Sodium Cancelled, Potassium Cancelled, Chloride Cancelled, Carbon Dioxide Cancelled, Anion Gap Cancelled, BUN Cancelled, Creatinine Cancelled, BUN/ Creatinine Ratio Cancelled, Glucose Cancelled, Calcium Cancelled, Total Bilirubin Cancelled, Direct Bilirubin Cancelled, AST Cancelled, ALT Cancelled, Alkaline Phosphatase Cancelled, Troponin I Cancelled, Total Protein Cancelled, Albumin Cancelled, Amylase Cancelled, Lipase Cancelled Urine culture no growth.
--- NOTE | 2017-05-09 10:52 | Discharge Summary ---
Visit Information Visit Dates Admission Date: 05/07/17 Discharge Date: 05/11/17 Hospital Course Course Attending Physician: Taye Najera MD Primary Care Physician: Dania BUENO,Taye Hospital Course: Patient is 76 year old female with PMh of [place] s/p 3 stents, hyperlipidemia, hypothyroidism came with the chief complain of repeated falls. Pamela, patients daughter was in the room and reported that patient has been falling repeatedly since past 6 months. Patient lives alone at home. She feel yesterday at 8 am and called the daughter at 4 pm, the daughter adds that she remained on the floor all this time. Patient uses walker t home and has been falling inspite of using walker. She fell again this morning around 3.15 ama nd activated her life support. Patient denies any loss of concern, headache, dizziness etc. Problem list: -History of recurrent and frequent falls -new fracture of L1 -Coronary artery disease -Dyslipidemia -Hypothyroidism Hospital course: Patient was admitted to general medicine floor, patient received 1 dose of IV ceftriaxone due to positioning of confusion secondary to possible asymptomatic bacteriuria. Physical therapy or constipation and they recommend patient to be discharged short-term rehabilitation. We'll manage the patient pain with Toradol and Flexeril. We'll continue the patient home medication. Patient remained afebrile during this hospitalization and she denied any urinary tract symptoms. Neurology evaluated the p.t for concern of dementia her MICI minimal cognitive impairment does not report impairment of daily functioning necessary for diagnosis of dementia and there Recommendations is outpatient follow-up by PCP. Imaging: EXAMINATION: NONCONTRAST HEAD CT NONCONTRAST CERVICAL SPINE CT INDICATION INFORMATION: Fall COMPARISON: To 05/31/2016 TECHNIQUE: Separate noncontrast CT examinations of the head and cervical spine were performed. Coronal head CT images and coronal and sagittal cervical spine images were created at the technologist workstation. DLP: 1085.51 mGy-cm FINDINGS: Head: There is no evidence of acute intracranial hemorrhage or territorial infarction. No abnormal mass-effect or midline shift is seen. Hwang to white matter differentiation is well preserved. No extra-axial fluid collections are identified. The ventricles are normal in size. There is moderate periventricular white matter hypoattenuation consistent with chronic small vessel ischemic disease. Mild volume loss is noted. The osseous structures and soft tissues are normal. The mastoid air cells and visualized portions of the paranasal sinuses are well-aerated. Cervical spine: There is anatomic alignment of the vertebral bodies and posterior elements. There is degenerative change at the atlantodens articulation. Vertebral body heights are maintained. There is disc space narrowing in the lower cervical spine. Prominent endplate osteophytes are present. There is bilateral facet arthropathy. No evidence of acute fracture. No prevertebral soft tissue swelling. Visualized portions of the lung apices are unremarkable. The thyroid gland appears diminutive. IMPRESSION: 1. Head: No acute intracranial findings. Chronic small vessel ischemic disease and volume loss. 2. Cervical spine: No acute findings identified. Moderate to severe degenerative changes. EXAM TYPE: CAT - CT ABD & PELVIS W/O IV CONTRAS; CT CHEST WO IV CONTRAST EXAM: NONCONTRAST CT OF THE CHEST; NONCONTRAST CT OF THE ABDOMEN AND PELVIS INDICATION: Fall, trauma COMPARISON: None TECHNIQUE: No IV contrast was utilized. Multidetector helical imaging was performed through the chest, abdomen, and pelvis. Coronal and sagittal reformatted images were created at the technologist workstation. DLP: 1509.68 mGy-cm FINDINGS: Chest: There is subsegmental atelectasis at the left lung base. No additional consolidation bilaterally. No pneumothorax or pleural effusions. The visualized thyroid gland is unremarkable. There are subcentimeter mediastinal lymph nodes within the range of normal variation. Cardiac size is within normal limits; no pericardial effusion. There is atherosclerotic calcification along the aorta. No axillary lymphadenopathy is present. Abdomen/Pelvis: The liver is homogeneous in attenuation without intrahepatic biliary ductal dilatation. There is mild layering hyperdensity of the gallbladder consistent with cholelithiasis. The unenhanced spleen, pancreas, and adrenal glands are within normal limits. There are several renal cysts bilaterally, largest off the lower poles measuring up to approximately 8.8 cm on the right and 8.0 cm on the left in the axial plane. No hydronephrosis bilaterally. There are tiny calculi in the renal cecilia bilaterally which may be vascular. The urinary bladder is unremarkable. The uterus and adnexa are unremarkable. No evidence of bowel obstruction or pericolonic inflammatory change. There is sigmoid colon diverticulosis. The appendix is unremarkable. No free fluid or free air is present. There is atherosclerotic calcification along the aorta and iliac arteries. No retroperitoneal or pelvic lymphadenopathy is seen. There is an acute appearing superior endplate fracture of L1 anteriorly, with approximately 25% loss of height. Alignment of the vertebral bodies and posterior elements throughout the spine appears maintained. Multilevel degenerative changes are present including osteophytes in the thoracic spine and facet arthropathy in the lumbar spine. IMPRESSION: 1. Acute superior endplate fracture of L1 anteriorly, with approximately 25% loss of height. 2. No additional acute traumatic findings identified in the chest, abdomen, or pelvis. 3. Cholelithiasis. 4. Bilateral renal cysts. EXAMINATION: BILATERAL KNEE X-RAY CLINICAL INFORMATION: Pain post fall COMPARISON: None TECHNIQUE: 3 views each knee FINDINGS: Right knee: Bone alignment is normal. No fracture or dislocation is seen. Joint spaces are normal. There is no joint effusion. There are small patellar osteophytes at the quadriceps tendon insertion and patellar tendon origin. There is evidence of atherosclerotic disease. Left knee: Bone alignment is normal. No fracture or dislocation is seen. There is medial femoral tibial joint space narrowing. Joint spaces are otherwise normal. There is no joint effusion. There is a patellar osteophyte at the quadriceps tendon insertion. There is evidence of atherosclerotic disease. IMPRESSION: Mild degenerative changes. No fracture or dislocation seen. Atherosclerotic disease. Allergies: Coded Allergies: NO KNOWN ALLERGIES (03/19/11) Pertinent Lab Results: Laboratory Tests 05/09 05/07 0850 1222 Chemistry Sodium (137 - 145 mmol/L) 141 Potassium (3.5 - 5.1 mmol/L) 3.9 Chloride (98 - 107 mmol/L) 100 Carbon Dioxide (22 - 30 mmol/L) 26 Anion Gap (5 - 16) 15 BUN (7 - 17 mg/dL) 16 Creatinine (0.5 - 1.0 mg/dL) 0.8 Estimated GFR (>60 ml/min) > 60 BUN/Creatinine Ratio (7 - 25 %) 20.0 Hematology CBC w Diff NO MAN DIFF REQ WBC (4.8 - 10.8 /CUMM) 6.5 RBC (4.20 - 5.40 /CUMM) 4.49 Hgb (12.0 - 16.0 G/DL) 13.2 Hct (37 - 47 %) 39.5 MCV (81.0 - 99.0 FL) 88.1 MCH (27.0 - 31.0 PG) 29.5 MCHC (33.0 - 37.0 G/DL) 33.5 RDW (11.5 - 14.5 %) 13.3 Plt Count (130 - 400 /CUMM) 208 MPV (7.4 - 10.4 FL) 8.7 Gran % (42.2 - 75.2 %) 54.2 Lymphocytes % (20.5 - 51.1 %) 30.7 Monocytes % (1.7 - 9.3 %) 8.9 Eosinophils % (0 - 5 %) 5.8 H Basophils % (0.0 - 2.0 %) 0.4 Absolute Granulocytes (1.4 - 6.5 /CUMM) 3.5 Absolute Lymphocytes (1.2 - 3.4 /CUMM) 2.0 Absolute Monocytes (0.10 - 0.60 /CUMM) 0.6 Absolute Eosinophils (0.0 - 0.7 /CUMM) 0.4 Absolute Basophils (0.0 - 0.2 /CUMM) 0 Urines Urine Color (YEL,AMB,STR) YEL Urine Clarity (CLEAR) HAZY H Urine pH (5.0 - 8.0) 6.0 Ur Specific Benton (1.001 - 1.035) >= 1.030 Urine Protein (NEG,<30 MG/DL) 100 H Urine Ketones (NEG) 15 H Urine Nitrite (NEG) NEG Urine Bilirubin (NEG) NEG@ICTO Urine Urobilinogen (0.1 - 1.0 EU/dl) 1.0 Ur Leukocyte Esterase (NEG) LARGE H Ur Microscopic SEDIMENT EXAMINED Urine RBC (0 - 5 /HPF) 1-3 Urine WBC (0 - 2 /HPF) 1-3 H Urine Bacteria (NEG/NONE) MANY H Urine Hemoglobin (NEG) MOD H Urine Glucose (N MG/DL) NEG Disposition Summary Disposition Principal Diagnosis: -History of recurrent and frequent falls -new fracture of L1 Additional Diagnosis: -Coronary artery disease -Dyslipidemia -Hypothyroidism Discharge Disposition: SNF Discharge Instructions General Discharge Information Code Status: Do Not Resucitate/Intubat Patient's Diet: Regular Patient's Activity: as torelated Follow-Up Instructions/Appts: Follow your primary care physician in one week. Medications at Discharge Discharge Medications: Continue taking these medications: Aspirin (Ecotrin*) 81 MG TABLET. 1 Tablet ORAL Every night Comments: LAST GIVEN 05/17/16 @ 2100 Montelukast Sodium (Singulair) 10 MG TABLET 1 Tablet ORAL DAILY Clopidogrel Bisulfate (Clopidogrel) 75 MG TABLET 1 Tablet ORAL DAILY Levocetirizine Dihydrochloride (Levocetirizine Dihydrochloride) 5 MG TABLET 1 Tablet ORAL Every night Ezetimibe (Zetia) 10 MG TABLET 1 Tablet ORAL DAILY Metoprolol Succinate (Metoprolol Succinate) 50 MG TAB.ER.24H 1 Tablet ORAL DAILY Mometasone Furoate (Nasonex) 50 MCG SPRAY.PUMP 2 Kipling Both sides of nose DAILY Escitalopram Oxalate (Escitalopram Oxalate) 10 MG TABLET 1 Tablet ORAL DAILY Omeprazole (Omeprazole) 20 MG CAPSULE.DR 1 Capsule ORAL DAILY Qty = 180 Atorvastatin Calcium (Atorvastatin Calcium) 40 MG TABLET 1 Tablet ORAL DAILY Qty = 90 Cyclobenzaprine HCl (Cyclobenzaprine HCl) 10 MG TABLET 1 Tablet ORAL THREE TIMES DAILY as needed for MUSCLE SPASMS Qty = 30 Meloxicam (Meloxicam) 15 MG TABLET 1 Tablet ORAL DAILY Qty = 30 Levothyroxine Sodium (Levothyroxine Sodium) 88 MCG TABLET 1 Tablet ORAL DAILY Qty = 90 Fluticasone/Vilanterol (Breo Ellipta 200-25 Mcg INH) 200 MCG-25 MCG/DOSE BLST.W.DEV 1 PUFF Inhale through mouth DAILY Qty = 180 Copies To: Dania BUENO,Taye
[2017-05-09 14:08] VITALS: BP 130/70
--- NOTE | 2017-05-09 15:06 | Cons- Neurology ---
General Information and HPI Consulting Request Date of Consult: 05/09/17 Requested By: Garry Meneses MD Reason for Consult: Asked to see patient concerning dementia Source of Information: patient, old records Exam Limitations: confusion History of Present Illness: 76/F with a stated hx of dementia in the record admitted after several falls and compression fracture was confused with hallucinations reported overnight. She says she lives alone, drives and does her own shopping and manages her own checkbook without difficulty but family not available to confirm this history. She is aware her memory is "not so good" Also hard of hearing but vision OK Allergies/Medications Allergies: Coded Allergies: NO KNOWN ALLERGIES (03/19/11) Home Med List: Aspirin (Ecotrin*) 81 MG TABLET.DR 1 TAB PO QPM HEART HEALTH (Reported) Atorvastatin Calcium 40 MG TABLET 1 TAB PO DAILY CHOLESTEROL (Reported) Clopidogrel Bisulfate (Clopidogrel) 75 MG TABLET 1 TAB PO DAILY BLOOD THINNER (Reported) Cyclobenzaprine HCl 10 MG TABLET 1 TAB PO TID PRN MUSCLE SPASMS (Reported) Escitalopram Oxalate 10 MG TABLET 1 TAB PO DAILY MENTAL HEALTH (Reported) Ezetimibe (Zetia) 10 MG TABLET 1 TAB PO DAILY CHOLESTEROL (Reported) Fluticasone/Vilanterol (Breo Ellipta 200-25 Mcg INH) 200 MCG-25 MCG/DOSE BLST.W.DEV 1 PUFF INH DAILY ASTHMA (Reported) Levocetirizine Dihydrochloride 5 MG TABLET 1 TAB PO QPM ASTHMA (Reported) Levothyroxine Sodium 88 MCG TABLET 1 TAB PO DAILY THYROID (Reported) Meloxicam 15 MG TABLET 1 TAB PO DAILY PAIN/INFLAMMATION (Reported) Metoprolol Succinate 50 MG TAB.ER.24H 1 TAB PO DAILY HEART (Reported) Mometasone Furoate (Nasonex) 50 MCG SPRAY.PUMP 2 SPRAY NASB DAILY NASAL PROBLEMS (Reported) Montelukast Sodium (Singulair) 10 MG TABLET 1 TAB PO DAILY ASTHMA (Reported) Omeprazole 20 MG CAPSULE.DR 1 CAP PO DAILY GERD (Reported) Current Medications: Current Medications Sig/Eliceo Start time Last Medication Dose Route Stop Time Status Admin Acetaminophen 650 MG Q6P PRN 05/07 1330 AC PO Aspirin Buffered 81 MG QPM 05/07 2200 AC 05/08 PO 2055 Atorvastatin Calcium 40 MG DAILY 05/07 1321 AC 05/09 PO 100 Ceftriaxone Sodium 1,000 MG DAILY@1800 05/08 1800 DC 05/08 IV 1856 Clopidogrel Bisulfate 75 MG DAILY 05/07 1321 AC 05/09 PO 1006 Cyclobenzaprine HCl 10 MG TID PRN 05/07 1330 AC PO Escitalopram Oxalate 10 MG DAILY 05/07 1322 AC 05/09 PO 1006 Ezetimibe 10 MG DAILY 05/07 1322 AC 05/09 PO 1005 Ketorolac 15 MG Q6 PRN 05/08 1730 AC 05/09 Tromethamine IV 0100 Levothyroxine Sodium 0.088 MG DAILY AC 05/09 0700 AC 05/09 PO 0625 Levothyroxine Sodium 0.088 MG DAILY 05/07 1324 DC 05/08 PO 1007 Metoprolol Succinate 50 MG DAILY 05/07 1322 AC 05/09 PO 1005 Montelukast Sodium 10 MG DAILY 05/07 1323 AC 05/09 PO 1006 Omeprazole 20 MG DAILY AC 05/09 0700 AC 05/09 PO 0625 Omeprazole 20 MG DAILY 05/07 1323 DC 05/08 PO 1007 Review of Systems Review of Systems: Back pain on movement, OK lying still. Headaches, lateralized weakness or numbness, depression denied. other elements of the complete ROS negative. Past History Travel History Traveled to [place] past 21 day No Medical History Blood Transfusion Hx: No Neurological: NONE EENT: NONE Cardiovascular: hyperlipidemia, myocardial infarction, STENTS X3 Respiratory: asthma Gastrointestinal: GERD Hepatic: NONE Renal: NONE Musculoskeletal: osteoarthritis, LUMBAR SALAMANCA CHRONIC BACK PAIN Psychiatric: NONE Endocrine: hypothyroidism Blood Disorders: NONE Cancer(s): NONE DIAGRAMMER/Reproductive: NONE Surgical History Surgical History: Lumbar laminectomy. Left arthroscopic rotator cuff repair, Left knee arthroscopic repair Family History Relations & Conditions If Any: MOTHER FH: diabetes mellitus FH: esophageal cancer FH: heart attack, Onset: 60+. FATHER FH: prostate cancer Psychosocial History Who Do You Live With? self Services at Home: None, recently going to physical therapy Primary Language: Georgian Smoking Status: Former Smoker ETOH Use: denies use Illicit Drug Use: denies illicit drug use Functional Ability ADLs Independent: dressing, eating, toileting, bathing. Ambulation: cane Exam & Diagnostic Data Vital Signs and I&O Vital Signs Date Time Temp Pulse Resp B/P B/P Pulse O2 O2 Flow FiO2 Mean Ox Delivery Rate 05/09 1408 98.0 70 20 130/70 94 Room Air 05/09 1008 Room Air 05/09 1005 97.5 74 20 138/68 05/09 0717 97.5 74 20 138/68 94 Room Air 05/09 0000 94 Room Air 05/08 2202 98.3 63 20 140/80 94 Intake & Output 05/09 1600 05/09 0800 05/09 0000 Intake Total 480 150 400 Output Total 651 Balance 480 150 -251 Intake, IV 0 Intake, Oral 480 150 400 Number 0 1 Bowel Movements Output, Stool 1 Output, Urine 650 Patient 180 lb Weight Physical Exam: Looks well, no distress alert oriented to name, location reason for admission but stated MAY 2016 no language errors, no dysarthria IR 3/3, STM 2/3 named 2 of last 4 presidents remote recall OK affect OK VFF, P4ERRL, EOMI lower CN normal motor power, tone, coordination normal sensory screens normal DTRs symmetric, no pathological rx gait testing deferred Last 48 Hours of Lab Results: Laboratory Tests 05/09 0850 Chemistry Sodium (137 - 145 mmol/L) 141 Potassium (3.5 - 5.1 mmol/L) 3.9 Chloride (98 - 107 mmol/L) 100 Carbon Dioxide (22 - 30 mmol/L) 26 Anion Gap (5 - 16) 15 BUN (7 - 17 mg/dL) 16 Creatinine (0.5 - 1.0 mg/dL) 0.8 Estimated GFR (>60 ml/min) > 60 BUN/Creatinine Ratio (7 - 25 %) 20.0 Hematology CBC w Diff NO MAN DIFF REQ WBC (4.8 - 10.8 /CUMM) 6.5 RBC (4.20 - 5.40 /CUMM) 4.49 Hgb (12.0 - 16.0 G/DL) 13.2 Hct (37 - 47 %) 39.5 MCV (81.0 - 99.0 FL) 88.1 MCH (27.0 - 31.0 PG) 29.5 MCHC (33.0 - 37.0 G/DL) 33.5 RDW (11.5 - 14.5 %) 13.3 Plt Count (130 - 400 /CUMM) 208 MPV (7.4 - 10.4 FL) 8.7 Gran % (42.2 - 75.2 %) 54.2 Lymphocytes % (20.5 - 51.1 %) 30.7 Monocytes % (1.7 - 9.3 %) 8.9 Eosinophils % (0 - 5 %) 5.8 H Basophils % (0.0 - 2.0 %) 0.4 Absolute Granulocytes (1.4 - 6.5 /CUMM) 3.5 Absolute Lymphocytes (1.2 - 3.4 /CUMM) 2.0 Absolute Monocytes (0.10 - 0.60 /CUMM) 0.6 Absolute Eosinophils (0.0 - 0.7 /CUMM) 0.4 Absolute Basophils (0.0 - 0.2 /CUMM) 0 vit |B12 436 in December 2016 TFT normal March 2017 Imaging/Other Studies: Head CT: There is no evidence of acute intracranial hemorrhage or territorial infarction. No abnormal mass-effect or midline shift is seen. Hwang to white matter differentiation is well preserved. No extra-axial fluid collections are identified. The ventricles are normal in size. There is moderate periventricular white matter hypoattenuation consistent with chronic small vessel ischemic disease. Mild volume loss is noted. The osseous structures and soft tissues are normal. The mastoid air cells and visualized portions of the paranasal sinuses are well-aerated. Assessment/Plan Assessment: MICI minimal cognitive impairment does not report impairment of daily functioning necessary for diagnosis of dementia Recommendations: outpatient follow-up by PCP Consult Acknowledgment - Thank you for your consult request.
[2017-05-09 22:20] VITALS: BP 120/70
[2017-05-10 07:06] VITALS: BP 140/68
--- NOTE | 2017-05-10 07:26 | PN- Housestaff ---
Subjective Follow-up For: Vertebral fracture Mechanical fall Subjective: No overnight events. Patient remained afebrile overnight. Seen and examined this morning. Patient denied any chest pain, short of a, nausea, vomiting, fever, abdominal pain and dysuria. Patient reported having back pain /10 but under control with pain medication. Review of Systems Constitutional: Reports: no symptoms. EENTM: Reports: no symptoms. Cardiovascular: Reports: no symptoms. Respiratory: Reports: no symptoms. Gastrointestinal: Reports: no symptoms. Genitourinary: Reports: no symptoms. Musculoskeletal: Reports: back pain. Neurological/Psychological: Reports: no symptoms. Objective Last 24 Hrs of Vital Signs/I&O Vital Signs Date Time Temp Pulse Resp B/P B/P Pulse O2 O2 Flow FiO2 Mean Ox Delivery Rate 05/10 0706 97.6 73 20 140/68 94 Room Air 05/09 2220 98.5 69 20 120/70 94 Room Air 05/09 1408 98.0 70 20 130/70 94 Room Air 05/09 1008 Room Air 05/09 1005 97.5 74 20 138/68 Intake & Output 05/10 1600 05/10 0800 05/10 0000 Intake Total 10 300 Output Total Balance 10 300 Intake, IV 10 Intake, Oral 300 Physical Exam General Appearance: Alert, Oriented X3, Cooperative Skin Temp/Moisture Exam: Warm/Dry Sepsis Skin Exam (color): Normal for Ethnicity HEENT: Atraumatic, PERRLA, EOMI Neck: Supple Cardiovascular: Normal S1, Normal S2 Lungs: Clear to Auscultation Abdomen: Soft, No Tenderness Neurological: Normal Speech, Strength at 5/5 X4 Ext, Normal Tone Extremities: No Edema Assessment/Plan Assessment: 76 year old female with PMh of [place] s/p 3 stents, hyperlipidemia, hypothyroidism came with [facility] chief complain of repeated falls. Pamela, patients daughter was in the room and reported that patient has been falling repeatedly since past 6 months. Patient lives alone at home. She feel yesterday at 8 am and called the daughter at 4 pm, the daughter adds that she remained on the floor all this time. We will keep the patient under observation on general medicine floor for conservative management of vertebral fracture. L1 vertebral fracture after the fall: -Acute superior endplate fracture of L1 anteriorly, with approximately 25% loss of height. -Conservative management of vertebral fracture. -Pain management -PT evaluation -Patient needs placement -Neurology consultation was obtained yesterday to rule out dementia. Patient didn't report any impairment of daily functioning necessary for diagnosis of dementia. History of hypothyroidism and hyperlipidemia: -Continue levothyroxine. -We will continue Lipitor History of CAD status post stent placement: We will continue her home medications including Plavix, aspirin and metoprolol. History of depression: We will continue escitalopram. H/O GERD: -continue omeprazole DVT prophylaxis: Mechanical CODE STATUS: DNR/intubation Problem List: 1. Vertebral compression fracture 2. Fall Pain Ratin Pain Location: back Pain Goal: Pain 4 or less Pain Plan: pain pathway Tomorrow's Labs & Rationales: none
--- NOTE | 2017-05-10 09:57 | PN- Att Addend ---
Attending Addendum Attending Brief Note Patient comfortable, no new changes to appreciate Dr. gresham neurology evaluation, minimal cognitive defect. Vitals signs are stable, no fever no new changes the pain is about the same. We will start arrangements for the patient to go to short-term rehabilitation. Intake & Output 05/10 1600 05/10 0400 05/09 1600 05/09 0400 05/08 1600 05/08 0400 Intake Total 10 300 630 400 780 400 Output Total 651 300 250 Balance 10 300 630 -251 480 150 Intake, IV 10 0 Intake, Oral 300 630 400 780 400 Number 0 1 1 Bowel Movements Output, Stool 1 Output, Urine 650 300 250 Patient 180 lb 180 lb Weight Current Medications Sig/Eliceo Start time Last Medication Dose Route Stop Time Status Admin Acetaminophen 650 MG Q6P PRN 05/07 1330 AC PO Aspirin Buffered 81 MG QPM 05/07 2200 AC 05/09 PO 2046 Atorvastatin Calcium 40 MG DAILY 05/07 1321 AC 05/10 PO 0911 Ceftriaxone Sodium 1,000 MG DAILY@1800 05/08 1800 DC 05/08 IV 1856 Clopidogrel Bisulfate 75 MG DAILY 05/07 1321 AC 05/10 PO 0911 Cyclobenzaprine HCl 10 MG TID PRN 05/07 1330 AC PO Escitalopram Oxalate 10 MG DAILY 05/07 1322 AC 05/10 PO 0912 Ezetimibe 10 MG DAILY 05/07 1322 AC 05/10 PO 0912 Ketorolac 15 MG Q6 PRN 05/08 1730 AC 05/10 Tromethamine IV 0845 Levothyroxine Sodium 0.088 MG DAILY AC 05/09 0700 AC 05/10 PO 0606 Metoprolol Succinate 50 MG DAILY 05/07 1322 AC 05/10 PO 0912 Montelukast Sodium 10 MG DAILY 05/07 1323 AC 05/10 PO 0912 Omeprazole 20 MG DAILY AC 05/09 0700 AC 05/10 PO 0606 Laboratory Tests 05/10/17 0810: CBC w Diff Pending, WBC Pending, RBC Pending, Hgb Pending, Hct Pending, MCV Pending, MCH Pending, MCHC Pending, RDW Pending, Plt Count Pending, MPV Pending 05/09/17 0850: Anion Gap 15, Estimated GFR > 60, BUN/Creatinine Ratio 20.0, CBC w Diff NO MAN DIFF REQ, RBC 4.49, MCV 88.1, MCH 29.5, MCHC 33.5, RDW 13.3, MPV 8.7, Gran % 54.2, Lymphocytes % 30.7, Monocytes % 8.9, Eosinophils % 5.8 H, Basophils % 0.4 , Absolute Granulocytes 3.5, Absolute Lymphocytes 2.0, Absolute Monocytes 0.6, Absolute Eosinophils 0.4, Absolute Basophils 0 05/07/17 1222: Urine Color YEL, Urine Clarity HAZY H, Urine pH 6.0, Ur Specific Martin >= 1.030, Urine Protein 100 H, Urine Ketones 15 H, Urine Nitrite NEG, Urine Bilirubin NEG@ICTO, Urine Urobilinogen 1.0, Ur Leukocyte Esterase LARGE H, Ur Microscopic SEDIMENT EXAMINED, Urine RBC 1-3, Urine WBC 1-3 H, Urine Bacteria MANY H, Urine Hemoglobin MOD H, Urine Glucose NEG Vital Signs Date Time Temp Pulse Resp B/P B/P Pulse O2 O2 Flow FiO2 Mean Ox Delivery Rate 05/10 0912 97.6 73 20 140/68 05/10 0706 97.6 73 20 140/68 94 Room Air 05/09 2220 98.5 69 20 120/70 94 Room Air 05/09 1408 98.0 70 20 130/70 94 Room Air 05/09 1008 Room Air 05/09 1005 97.5 74 20 138/68
[2017-05-10 10:07] LABS: ABSOLUTE BASOPHIL COUNT 0 /CUMM (0.0-0.2); ABSOLUTE EOSINOPHIL COUNT 0.4 /CUMM (0.0-0.7); ABSOLUTE GRANULOCYTE CT 3.4 /CUMM (1.4-6.5); ABSOLUTE LYMPH COUNT 1.8 /CUMM (1.2-3.4); ABSOLUTE MONOCYTE COUNT 0.4 /CUMM (0.10-0.60); BASOPHIL % 0.5 % (0.0-2.0); EOSINOPHIL % 6.2 % (0-5); GRANULOCYTE % 56.3 % (42.2-75.2); HEMATOCRIT 38.5 % (37-47); MEAN CORPUSCULAR HGB 29.3 PG (27.0-31.0); MEAN CORPUSCULAR HGB CONC 33.8 G/DL (33.0-37.0); MEAN CORPUSCULAR VOLUME 86.8 FL (81.0-99.0); MEAN PLATELET VOLUME 9.1 FL (7.4-10.4); PLATELET COUNT 226 /CUMM (130-400); RBC DISTRIBUTION WIDTH 12.9 % (11.5-14.5); RED BLOOD CELL CT 4.43 /CUMM (4.20-5.40)
[2017-05-10 14:24] VITALS: BP 118/70
[2017-05-10 22:27] VITALS: BP 120/60
[2017-05-11 06:15] VITALS: BP 132/76
--- NOTE | 2017-05-11 07:48 | PN- Housestaff ---
Subjective Follow-up For: Nondisaplaced vertebral fracture Mechanical fall Subjective: Afebrile overnight. Seen and examined this morning. Patient denied any chest pain, short of breath, nausea, vomiting or vomiting, fever, abdominal pain and dysuria. Her back pain is under control with pain medication. Patient is waiting for bed short-term rehabilitation. Review of Systems Constitutional: Reports: no symptoms. EENTM: Reports: no symptoms. Cardiovascular: Reports: no symptoms. Respiratory: Reports: no symptoms. Gastrointestinal: Reports: no symptoms. Genitourinary: Reports: no symptoms. Musculoskeletal: Reports: no symptoms. Neurological/Psychological: Reports: no symptoms. Objective Last 24 Hrs of Vital Signs/I&O Vital Signs Date Time Temp Pulse Resp B/P B/P Pulse O2 O2 Flow FiO2 Mean Ox Delivery Rate 05/11 0615 97.9 69 18 132/76 96 Room Air 05/10 2227 98.8 67 20 120/60 95 Room Air 05/10 1424 98.0 58 20 118/70 96 05/10 0912 97.6 73 20 140/68 Intake & Output 05/11 0800 05/11 0000 05/10 1600 Intake Total 240 240 500 Output Total 300 Balance -60 240 500 Intake, Oral 240 240 500 Number 0 Bowel Movements Output, Urine 300 Physical Exam General Appearance: Alert, Oriented X3, Cooperative, No Acute Distress Skin Temp/Moisture Exam: Warm/Dry Sepsis Skin Exam (color): Normal for Ethnicity HEENT: Atraumatic, PERRLA, EOMI Neck: Supple Cardiovascular: Normal S1, Normal S2 Lungs: Clear to Auscultation Abdomen: Soft, No Tenderness Neurological: Normal Speech, Strength at 5/5 X4 Ext, Normal Tone Extremities: No Edema Assessment/Plan Assessment: 76 year old female with PMh of AR s/p 3 stents, hyperlipidemia, hypothyroidism came with [facility] chief complain of repeated falls. Pamela, patients daughter was in the room and reported that patient has been falling repeatedly since past 6 months. Patient lives alone at home. She feel yesterday at 8 am and called the daughter at 4 pm, the daughter adds that she remained on the floor all this time. We will keep the patient under observation on general medicine floor for conservative management of vertebral fracture. L1 vertebral fracture after the fall: -Acute superior endplate fracture of L1 anteriorly, with approximately 25% loss of height. -Conservative management of vertebral fracture. -Pain management -PT evaluation -Neurology consultation was obtained to rule out dementia. Patient didn't report any impairment of daily functioning necessary for diagnosis of dementia. -Patient needs placement History of hypothyroidism and hyperlipidemia: -Continue levothyroxine. -We will continue Lipitor History of CAD status post stent placement: We will continue her home medications including Plavix, aspirin and metoprolol. History of depression: We will continue escitalopram. H/O GERD: -continue omeprazole DVT prophylaxis: Mechanical CODE STATUS: DNR/intubation Problem List: 1. Vertebral compression fracture 2. Fall Pain Ratin Pain Location: none Pain Goal: Remain pain free Pain Plan: pain pathway Tomorrow's Labs & Rationales: none
[2017-05-11 09:01] LABS: ABSOLUTE BASOPHIL COUNT 0 /CUMM (0.0-0.2); ABSOLUTE EOSINOPHIL COUNT 0.5 /CUMM (0.0-0.7); ABSOLUTE LYMPH COUNT 2.6 /CUMM (1.2-3.4); ABSOLUTE MONOCYTE COUNT 0.5 /CUMM (0.10-0.60); BASOPHIL % 0.5 % (0.0-2.0); GRANULOCYTE % 45.9 % (42.2-75.2); HEMATOCRIT 36.8 % (37-47); MEAN CORPUSCULAR HGB 29.5 PG (27.0-31.0); MEAN CORPUSCULAR HGB CONC 33.6 G/DL (33.0-37.0); MEAN CORPUSCULAR VOLUME 87.8 FL (81.0-99.0); MEAN PLATELET VOLUME 8.9 FL (7.4-10.4); PLATELET COUNT 233 /CUMM (130-400); RBC DISTRIBUTION WIDTH 13.2 % (11.5-14.5); RED BLOOD CELL CT 4.18 /CUMM (4.20-5.40); WHITE BLOOD CELL COUNT 6.5 /CUMM (4.8-10.8)
--- NOTE | 2017-05-11 09:51 | PN- Att Addend ---
Attending Addendum Attending Brief Note No new issues sitting in the chair. Vital signs are stable no fever. Mental status baseline. [employer] insurance company to approve short-term rehabilitation as soon as this is done patient will be going to get some physical therapy to increase her strength in the lower extremities and improve her balance to avoid the frequent falls she has had. Intake & Output 05/11 1600 05/11 0400 05/10 1600 05/10 0400 05/09 1600 05/09 0400 Intake Total 240 240 510 300 630 400 Output Total 300 651 Balance -60 240 510 300 630 -251 Intake, IV 10 0 Intake, Oral 240 240 500 300 630 400 Number 0 0 1 Bowel Movements Output, Stool 1 Output, Urine 300 650 Patient 180 lb Weight Current Medications Sig/Eliceo Start time Last Medication Dose Route Stop Time Status Admin Acetaminophen 650 MG .STK-MED ONE 05/10 2120 DC PO 05/10 2121 Acetaminophen 650 MG Q6P PRN 05/07 1330 AC 05/10 PO 212 Aspirin Buffered 81 MG QPM 05/07 2200 AC 05/10 PO 2121 Atorvastatin Calcium 40 MG DAILY 05/07 1321 AC 05/11 PO 0913 Bisacodyl 5 MG DAILY 05/11 1000 AC PO Budesonide/ 2 PUF BID PRN 05/11 0945 AC Formoterol Fumarate INH Clopidogrel Bisulfate 75 MG DAILY 05/07 1321 AC 05/11 PO 0914 Cyclobenzaprine HCl 10 MG TID PRN 05/07 1330 AC PO Escitalopram Oxalate 10 MG DAILY 05/07 1322 AC 05/11 PO 0913 Ezetimibe 10 MG DAILY 05/07 1322 AC 05/11 PO 0914 Ketorolac 15 MG Q6 PRN 05/08 1730 AC 05/11 Tromethamine IV 0824 Levothyroxine Sodium 0.088 MG DAILY AC 05/09 0700 AC 05/11 PO 0557 Metoprolol Succinate 50 MG DAILY 05/07 1322 AC 05/11 PO 0914 Montelukast Sodium 10 MG DAILY 05/07 1323 AC 05/11 PO 0914 Omeprazole 20 MG DAILY AC 05/09 0700 AC 05/11 PO 0557 Polyethylene Glycol 17 GM DAILY 05/11 1000 AC 05/11 PO 0922 Laboratory Tests 05/11/ 0737: Anion Gap 13, Estimated GFR > 60, BUN/Creatinine Ratio 23.3, CBC w Diff NO MAN DIFF REQ, RBC 4.18 L, MCV 87.8, MCH 29.5, MCHC 33.6, RDW 13.2, MPV 8.9, Gran % 45.9, Lymphocytes % 39.4, Monocytes % 7.2, Eosinophils % 7.0 H, Basophils % 0.5 , Absolute Granulocytes 3.0, Absolute Lymphocytes 2.6, Absolute Monocytes 0.5, Absolute Eosinophils 0.5, Absolute Basophils 0 05/10/17 0810: CBC w Diff NO MAN DIFF REQ, RBC 4.43, MCV 86.8, MCH 29.3, MCHC 33.8, RDW 12.9, MPV 9.1, Gran % 56.3, Lymphocytes % 29.6, Monocytes % 7.4, Eosinophils % 6.2 H, Basophils % 0.5, Absolute Granulocytes 3.4, Absolute Lymphocytes 1.8, Absolute Monocytes 0.4, Absolute Eosinophils 0.4, Absolute Basophils 0 05/09/17 0850: Anion Gap 15, Estimated GFR > 60, BUN/Creatinine Ratio 20.0, CBC w Diff NO MAN DIFF REQ, RBC 4.49, MCV 88.1, MCH 29.5, MCHC 33.5, RDW 13.3, MPV 8.7, Gran % 54.2, Lymphocytes % 30.7, Monocytes % 8.9, Eosinophils % 5.8 H, Basophils % 0.4 , Absolute Granulocytes 3.5, Absolute Lymphocytes 2.0, Absolute Monocytes 0.6, Absolute Eosinophils 0.4, Absolute Basophils 0 Vital Signs Date Time Temp Pulse Resp B/P B/P Pulse O2 O2 Flow FiO2 Mean Ox Delivery Rate 05/11 0914 64 110/60 05/11 0615 97.9 69 18 132/76 96 Room Air 05/10 2227 98.8 67 20 120/60 95 Room Air 05/10 1424 98.0 58 20 118/70 96
[2017-05-11 14:22] VITALS: BP 120/60
[2017-05-11 17:29] VITALS: BP 120/60
== END 2017-05-11 17:51 ==
LOC: ERH 04:05 → 2NA 11:37 → ERHI 11:37 → 2NA 11:37 → CANRESERV 13:05 → ENRESERV 13:05 → ENTRNSPT 14:45 → EDTRNSPTSTS 15:16 → 2NA 15:21 → CMPTRNSPT 15:29 → 2NA 05-11 17:51
PROVIDERS: Pediatrics; Student in an Organized Health Care Education/Training Program
DX: S32.019A Unspecified fracture of first lumbar vertebra, initial encounter for closed fracture (principal); W18.30XA Fall on same level, unspecified, initial encounter; Z91.81 History of falling; Y93.9 Activity, unspecified; Y92.009 Unspecified place in unspecified non-institutional (private) residence as the place of occurrence of the external cause; I25.2 Old myocardial infarction; I25.10 Atherosclerotic heart disease of native coronary artery without angina pectoris; Z95.5 Presence of coronary angioplasty implant and graft; Z79.82 Long term (current) use of aspirin; E78.5 Hyperlipidemia, unspecified; E03.9 Hypothyroidism, unspecified; R53.1 Weakness
CPT/HCPCS: 36415; 73562-LT; 73562-RT; 74176; 81001; 82436; 93005; 93010; 96372; 96374; 96375; 97110-GP; 97116-GP; 97161-GP; 97530-GP; G0378; G8978-GP; G8979-GP; J0696; J1885; J3490